=== PATIENT | female | born 1990 | race Hispanic/Latino ===

== ENCOUNTER 2017-06-04 22:31 | Emergency (ER) | payer OTHER ==
--- OUTSIDE RECORDS SUMMARY | 2017-06-04 22:33 | XMS REPORT ---
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 Problem Pain, unspecified R52 Active Problem Abnormal menses N92.6 Active Problem Allergic rhinitis J30.9 Active Problem Polycystic disease, ovaries E28.2 Active Problem BMI 45.0-49.9, adult Z68.42 Active Problem Fam hx-ischem heart disease Z82.49 Active Assessment Pain, unspecified R52 Active Assessment 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 Assessment Abnormal menses N92.6 Active Medications Medication Code Code Instructions Start End Status Dosage System Date Date Levothyroxine Sodium ND 71054969488 25 MCG Orally Active 1 tablet on Once a day an empty stomach in the morning Montelukast Sodium ND 58522596235 10 MG Orally Active 1 tablet in Once a day the evening Cromolyn Sodium [facility] 98408229992 4 % Active INSTILL 1 DROP IN THE AFFECTED EYE(S) 4 TIMES A DAY Paroxetine HCl ND 22337764334 40 MG Orally Active 1 tablet in Once a day the morning Nystatin-Triamcinolon ND 43863447325 428570-4.1 Active 1 e UNIT/GM application Externally to affected Twice a day area Lo Loestrin Fe ND 69162163486 1 MG-10 MCG / Active 1 tablet 10 MCG Orally Once a day Flonase ND 43760606867 50 MCG/ACT Active 2 spray in Nasally Once a each nostril day Singulair ND 14195306629 10 MG Orally Active 1 tablet in Once a day the evening Proventil HFA ND 82888353954 108 (90 Base) Active TAKE 2 PUFFS MCG/ACT BY MOUTH EVERY 4 TO 6 HOURS NEEDED FOR SHORTNESS OF BREATH/WHEEZ ING MedroxyPROGESTERone [facility] 66906434697 10 MG Orally May Active 1 tablet Acetate Once a day for , with food 10 days then 2017 2017 stop Qvar [facility] 59794550259 40 MCG/ACT Active 1 puff Inhalation Twice a day Spironolactone [facility] 05437647611 25 MG Orally Active 1 tablet Once a day with food Lisinopril [facility] 50152860598 40 MG Orally Active 1 tablet Once a day Results Name Result Date Reference Range Unit Abnormality Flag TEST URINE ----RESULTS neg [id number] URINALYSIS AUTO W/O SCOPE (23504) ----PROTEIN trace [id number] ----pH 5.5 [id number] ----NIT neg [id number] ----YENI neg [id number] ----URO 0.2 [id number] ----SPECIFIC GRAVITY 1.030 [id number] ----BLO neg [id number] ----BILIRUBIN neg [id number] ----KETONES neg [id number] ----GLUCOSE neg [id number] Summary Purpose eClinicalWorks Submission
[2017-06-04 23:11] LABS: Absolute Lymphocytes (CBC) 4.3 K/uL (0.7-4.9); Absolute Monocytes 0.8 K/uL (0.1-1.3); Absolute Neutrophil 8.5 K/uL (1.8-8.0); Eosinophils % 2.9 % (0-4.4); Hematocrit 43.3 % (36.0-45.0); Lymphocytes % 30.3 % (15.3-44.8); MCV 84.8 fL (80-100); MPV 8.7 fL (7.6-11.3); RBC Red Blood Cell Count 5.11 M/uL (3.86-4.86)
[2017-06-04 23:17] LABS: Protime INR 1.11
[2017-06-04 23:25] LABS: Potassium 3.4 mEq/L (3.6-5.0)
[2017-06-04] MEDS ORDERED: NA CHLORIDE 0.9% 1,000 ML ONE (23:28)
[2017-06-04] MEDS ORDERED: ASPIRIN 81 MG CHEWABLE TABLET ONE (23:28)
[2017-06-04] MEDS ORDERED: ENOXAPARIN 100 MG/ML SYR SQ ONE (23:28)
[2017-06-04] MEDS ORDERED: METOPROLOL TAR 50 MG TAB ONE (23:28)
[2017-06-04] MEDS ORDERED: FAMOTIDINE 20 MG/2 ML VIAL IV ONE (23:30)
[2017-06-04 23:33] LABS: Albumin 3.9 g/dL (3.2-5.5); Bilirubin Direct 0.1 mg/dL (0-0.2); Bilirubin Total 0.5 mg/dL (0.3-1.2); C-Reactive Protein 14.1 mg/L (<10.0); CKMB Creatine Kinase MB 1.1 ng/ml (0.3-4.0); Protein, Total 7.6 g/dL (6.0-8.3)
--- NOTE | 2017-06-05 00:35 | EDPHYS ---
Physician Documentation [facility] Name: Rubi Garrido Age: 26 yrs Sex: Female : 1990 Arrival Date: 06/04/2017 Time: 22:32 Bed 16 Private MD: ED Physician Flaco Klein HPI: 06/04 23:04 This 26 yrs old Female presents to ER via Ambulatory with complaints of Chest brigette Pain, RIGHT SIDE NUMBNESS. 23:04 The patient or guardian reports chest pain that is located primarily in the substernal brigette area. The pain does not radiate. Associated signs and symptoms: The patient has no apparent associated signs or symptoms. The chest pain is described as a heaviness. Duration: The patient or guardian reports a single episode, that is now resolved. Modifying factors: The symptoms are alleviated by nothing. the symptoms are aggravated by nothing. Severity of pain: At its worst the pain was mild moderate in the emergency department the pain is unchanged. The patient has experienced similar episodes in the past, a few times. FAMILY LIFE COUNSELOR: 22:45 LMP 03/2017 fc Historical: - Allergies: 23:03 Latex, Natural Rubber; fc 23:03 Phenergan; fc 23:03 Tramadol HCl; fc 23:03 Zofran; fc - Home Meds: 23:03 Singulair 10 mg Oral tab 1 tab as needed [Active]; spironolactone 25 mg Oral tab 1 tab fc 2 times per day [Active]; levothyroxine 175 mcg tab 1 tab once daily [Active]; Proventil Inhl as needed [Active]; ProAir HFA 90 mcg/actuation inhalation HFAA 1 puff as needed [Active]; - PMHx: 23:03 Asthma; PREECLAMPSIA; Hypothyroidism; Hypertension; CVA; fc - PSHx: 23:03 ; fc - Immunization history:: Last tetanus immunization: up to date. - Social history:: Smoking status: Patient/guardian denies using tobacco, Patient/guardian denies using alcohol, street drugs. - Family history:: not pertinent. ROS: 23:04 Constitutional: Negative for fever, chills, and weight loss, Eyes: Negative for injury, brigette pain, redness, and discharge, ENT: Negative for injury, pain, and discharge, Neck: Negative for injury, pain, and swelling, Respiratory: Negative for shortness of breath, cough, wheezing, and pleuritic chest pain, Abdomen/GI: Negative for abdominal pain, nausea, vomiting, diarrhea, and constipation, Back: Negative for injury and pain, : Negative for injury, bleeding, discharge, and swelling, MS/Extremity: Negative for injury and deformity, Skin: Negative for injury, rash, and discoloration, Neuro: Negative for headache, weakness, numbness, tingling, and seizure, Psych: Negative for depression, anxiety, suicide ideation, homicidal ideation, and hallucinations, Allergy/Immunology: Negative for hives, rash, and allergies, Endocrine: Negative for neck swelling, polydipsia, polyuria, polyphagia, and marked weight changes, Hematologic/Lymphatic: Negative for swollen nodes, abnormal bleeding, and unusual bruising. 23:04 Cardiovascular: Positive for chest pain, of the chest. Exam: 23:04 Constitutional: This is a well developed, well nourished patient who is awake, alert, brigette and in no acute distress. Head/Face: Normocephalic, atraumatic. Eyes: Pupils equal round and reactive to light, extra-ocular motions intact. Lids and lashes normal. Conjunctiva and sclera are non-icteric and not injected. Cornea within normal limits. Periorbital areas with no swelling, redness, or edema. ENT: Nares patent. No nasal discharge, no septal abnormalities noted. Tympanic membranes are normal and external auditory canals are clear. Oropharynx with no redness, swelling, or masses, exudates, or evidence of obstruction, uvula midline. Mucous membranes moist. Neck: Trachea midline, no thyromegaly or masses palpated, and no cervical lymphadenopathy. Supple, full range of motion without nuchal rigidity, or vertebral point tenderness. No Meningismus. Cardiovascular: Regular rate and rhythm with a normal S1 and S2. No gallops, murmurs, or rubs. Normal PMI, no JVD. No pulse deficits. Respiratory: Lungs have equal breath sounds bilaterally, clear to auscultation and percussion. No rales, rhonchi or wheezes noted. No increased work of breathing, no retractions or nasal flaring. Abdomen/GI: Soft, non-tender, with normal bowel sounds. No distension or tympany. No guarding or rebound. No evidence of tenderness throughout. Back: No spinal tenderness. No costovertebral tenderness. Full range of motion. Pelvic Exam: Normal external genitalia. Speculum exam with closed cervical os, no discharge or bleeding noted. Bimanual exam with normal adnexa, no adnexal or cervical motion tenderness. Normal uterus. Female : Normal external genitalia. Skin: Warm, dry with normal turgor. Normal color with no rashes, no lesions, and no evidence of cellulitis. MS/ Extremity: Pulses equal, no cyanosis. Neurovascular intact. Full, normal range of motion. Neuro: Awake and alert, GCS 15, oriented to person, place, time, and situation. Cranial nerves II-XII grossly intact. Motor strength 5/5 in all extremities. Sensory grossly intact. Cerebellar exam normal. Normal gait. Psych: Awake, alert, with orientation to person, place and time. Behavior, mood, and affect are within normal limits. 23:04 Chest/axilla: Inspection: normal, Palpation: tenderness, that is mild, of the anterior aspect of right upper chest, anterior aspect of left upper chest, xyphoid area, mid-sternal area, right breast and left breast. Vital Signs: 22:45 BP 138 / 97; Pulse 108; Resp 18; Temp 97.8(O); Pulse Ox 97% on R/A; Weight 99.79 kg fc (R); Height 4 ft. 11 in. (149.86 cm) (R); Pain 8/10; 23:55 BP 124 / 84; Pulse 83; Resp 18; Pulse Ox 97% on R/A; ao 06/05 00:55 BP 128 / 86; Pulse 82; Resp 16; Pulse Ox 97% on R/A; Pain 0/10; ao 06/04 22:45 Body Mass Index 44.43 (99.79 kg, 149.86 cm) NIH Stroke Scale Scores: 06/04 22:45 NIHSS Score: 1 23:06 NIHSS Score: 0 [facility] MDM: 22:47 Patient medically screened. [facility] 23:06 Data reviewed: vital signs, nurses notes, lab test result(s), EKG, radiologic studies, [facility] CT scan, plain films. 06/04 22:49 Order name: Basic Metabolic Panel; Complete Time: 00:31 [facility] 06/04 22:49 Order name: BNP; Complete Time: 00:31 [facility] 06/04 22:49 Order name: CBC with Diff; Complete Time: 00:31 06/04 22:49 Order name: Ckmb; Complete Time: 00:31 brigette 06/04 22:49 Order name: CPK; Complete Time: 00:31 06/04 22:49 Order name: LFT's; Complete Time: 00:31 06/04 22:49 Order name: Magnesium; Complete Time: 00:31 06/04 22:49 Order name: PT-INR; Complete Time: 00:06/04 22:49 Order name: Ptt, Activated; Complete Time: 00:31 06/04 22:49 Order name: Troponin (emerg Dept Use Only); Complete Time: 00: brigette 06/04 22:49 Order name: Lipase; Complete Time: 00: brigette 06/04 22:49 Order name: Sed Rate; Complete Time: 00:31 06/04 22:49 Order name: CRP; Complete Time: 00:31 brigette 06/04 22:51 Order name: Basic Metabolic Panel em06/04 22:49 Order name: EKG; Complete Time: 22:49 06/04 22:49 Order name: CT Stroke Brain w/o Contrast 06/04 22:51 Order name: CBC with Diff em06/04 22:51 Order name: Protime (+inr) em06/04 22:51 Order name: Ptt, Activated em06/04 22:51 Order name: Urine Microscopic Only 06/04 22:51 Order name: Stroke CXR 1 View 06/04 22:51 Order name: EKG; Complete Time: 22:52 06/04 22:49 Order name: Cardiac monitoring; Complete Time: 23:41 06/04 22:49 Order name: EKG - Nurse/Tech; Complete Time: 23:41 06/04 22:49 Order name: IV Saline Lock; Complete Time: 23:41 brigette 06/04 22:49 Order name: Labs collected and sent; Complete Time: 23:42 06/04 22:49 Order name: O2 Per Protocol; Complete Time: 23:42 06/04 22:49 Order name: O2 Sat Monitoring; Complete Time: 23:42 06/04 22:51 Order name: Accucheck; Complete Time: 23:43 em06/04 22:51 Order name: Cardiac monitoring; Complete Time: 23:38 em06/04 22:51 Order name: EKG - Nurse/Tech; Complete Time: 23:38 06/04 22:51 Order name: IV Saline Lock; Complete Time: 23:43 06/04 22:51 Order name: Labs collected and sent; Complete Time: 23:43 06/04 22:51 Order name: NPO; Complete Time: 23:43 em06/04 22:51 Order name: O2 Per Protocol; Complete Time: 23:43 06/04 22:51 Order name: O2 Sat Monitoring; Complete Time: 23:39 em06/04 22:51 Order name: Stroke Swallow Screen; Complete Time: 23:43 em06/05 00:40 Order name: CONS Physician Consult EDMS Administered Medications: 22:00 Drug: NS 0.9% 1000 ml Route: IV; Rate: 1 bolus; Site: left antecubital; ao 06/05 00:00 Follow up: IV Status: Completed infusion; IV Intake: 1000ml ao 06/04 23:20 Drug: Lopressor (metoprolol TARTRATE) 50 mg Route: PO; ao 06/05 00:51 Follow up: Response: No adverse reaction ao 06/04 23:25 Drug: Aspirin 162 mg Route: PO; ao 06/05 00:50 Follow up: Response: No adverse reaction ao 06/04 23:40 Drug: Pepcid 20 mg Route: IVP; Site: left antecubital; ao 06/05 00:51 Follow up: Response: No adverse reaction ao 06/04 23:54 Drug: Lovenox 1 mg/kg Route: Sub-Q; Site: abdomen; ao 06/05 00:50 Follow up: Response: No adverse reaction ao 01:02 Drug: Potassium Chloride 20 mEq Route: PO; ao 02:42 Follow up: Response: No adverse reaction ao Point of Care Testing: Blood Glucose: 06/04 22:46 Blood Glucose: 105 mg/dL; fc Ranges: Critical Glucose Levels:Adult <50 mg/dl or >400 mg/dl <40 mg/dl or >180 mg/dl Disposition: 06/05/17 01:10 Patient has left against medical advice. Impression: Other chest pain. - Patients states they are going to Home. - Condition is Stable. - Discharge Instructions: Nonspecific Chest Pain, Chest Wall Pain, Nonspecific Chest Pain, [id number], Aspirin and Your Heart. Follow up: Private Physician; When: Upon discharge from the Emergency Department; Reason: Recheck today's complaints, Re-evaluation by your physician. - Problem is new. - Symptoms have improved. NIH Stroke Scale - NIH Stroke Score Date: 06/04/2017 Time: 22:45 Total Score = 1 1a. Level of Consciousness (LOC) - 0(Alert) 1b. Level of Consciousness (LOC) (Year \T\ Age) - 0(Both) 1c. LOC Commands (Open \T\ Closes Eyes/Assistant Professor Of Criminal Justice) - 0(Both) 2. Best Gaze (Lateral Gaze Paresis) - 0(Normal) 3. Visual Field Loss - 0(No visual loss) 4. Facial Palsy - 0(Normal) 5a. Left Arm: Motor (10-second hold) - 0(No drift) 5b. Right Arm: Motor (10-second hold) - 0(No drift) 6a. Left Leg: Motor (5-second hold - always test supine) - 0(No drift) 6b. Right Leg: Motor (5-second hold - always test supine) - 0(No drift) 7. Limb Ataxia (finger/nose \T\ heel/jones - test with eyes open) - 0(Absent) 8. Sensory Loss (pinprick arms/legs/face) - 1(Mild to moderate loss) 9. Best Language: Aphasia (description/naming/reading) - 0(No aphasia) 10. Dysarthria (speech clarity - read or repeat words) - 0(Normal) 11. Extinction and Inattention (visual/tactile/auditory/spatial/personal) - 0(No abnormality) Initials: fc NIH Stroke Scale - NIH Stroke Score Date: 06/04/2017 Time: 23:06 Total Score = 0 1a. Level of Consciousness (LOC) - 0(Alert) 1b. Level of Consciousness (LOC) (Year \T\ Age) - 0(Both) 1c. LOC Commands (Open \T\ Closes Eyes/Assistant Professor Of Criminal Justice) - 0(Both) 2. Best Gaze (Lateral Gaze Paresis) - 0(Normal) 3. Visual Field Loss - 0(No visual loss) 4. Facial Palsy - 0(Normal) 5a. Left Arm: Motor (10-second hold) - 0(No drift) 5b. Right Arm: Motor (10-second hold) - 0(No drift) 6a. Left Leg: Motor (5-second hold - always test supine) - 0(No drift) 6b. Right Leg: Motor (5-second hold - always test supine) - 0(No drift) 7. Limb Ataxia (finger/nose \T\ heel/jones - test with eyes open) - 0(Absent) 8. Sensory Loss (pinprick arms/legs/face) - 0(Normal) 9. Best Language: Aphasia (description/naming/reading) - 0(No aphasia) 10. Dysarthria (speech clarity - read or repeat words) - 0(Normal) 11. Extinction and Inattention (visual/tactile/auditory/spatial/personal) - 0(No abnormality) Initials: brigette Signatures: Dispatcher [employer] EDMS Flaco Klein MD MD cha Chretien, Felicia, RN RN Luis Enrique Khan [facility] Sterling Arana RN RN ao Corrections: (The following items were deleted from the chart) 22:55 22:52 CT-STROKE BRAIN W/O CONTRAST+CT.RAD.BRZ ordered. EDMS EDMS 23:00 22:49 Chest Single View+RAD.RAD.BRZ ordered. EDMS EDMS
--- NOTE | 2017-06-05 00:35 | ER ---
Nurse's Notes [facility] Name: Rubi Garrido Age: 26 yrs Sex: Female : 1990 Arrival Date: 06/04/2017 Time: 22:32 Bed 16 Private MD: Diagnosis: Other chest pain Presentation: 06/04 22:45 Presenting complaint: Patient states: that at 2039 she started to have right arm fc numbness and chest pain that radiates to right arm and back. Denies any nausea or vomiting but is having some shortness of breath. Transition of care: patient was not received from another setting of care. Onset of symptoms was June 04, 2017 at 20:40. Initial Sepsis Screen: Does the patient meet any 2 criteria? HR > 90 bpm. Yes Does the patient have a suspected source of infection? No. Patient's initial sepsis screen is negative. Care prior to arrival: None. 22:45 Method Of Arrival: Ambulatory 22:45 Acuity: RACHEL 2 fc NIGHT CLUB MANAGER: 22:45 [facility] 03/2017 fc Historical: - Allergies: 23:03 Latex, Natural Rubber; fc 23:03 Phenergan; fc 23:03 Tramadol HCl; fc 23:03 Zofran; fc - Home Meds: 23:03 Singulair 10 mg Oral tab 1 tab as needed [Active]; spironolactone 25 mg Oral tab 1 tab fc 2 times per day [Active]; levothyroxine 175 mcg tab 1 tab once daily [Active]; Proventil Inhl as needed [Active]; ProAir HFA 90 mcg/actuation inhalation HFAA 1 puff as needed [Active]; - PMHx: 23:03 Asthma; PREECLAMPSIA; Hypothyroidism; Hypertension; CVA; fc - PSHx: 23:03 ; fc - Immunization history:: Last tetanus immunization: up to date. - Social history:: Smoking status: Patient/guardian denies using tobacco, Patient/guardian denies using alcohol, street drugs. - Family history:: not pertinent. Screenin:59 Abuse screen: Denies threats or abuse. Nutritional screening: No deficits noted. fc Tuberculosis screening: No symptoms or risk factors identified. Fall Risk None identified. Assessment: 22:45 Reassessment: NIH stroke scale done. ao 22:46 Reassessment: Code stroke called. Reassessment: Accu check done. ao 22:47 Reassessment: Pt taken to CT. ao 22:55 General: Appears in no apparent distress. uncomfortable, Behavior is calm, cooperative, ao appropriate for age, Reports numbness in the right side. Pain: Complains of pain in chest Pain does not radiate. Pain currently is 8 out of 10 on a pain scale. Pain began suddenly. Neuro: Level of Consciousness is awake, alert, obeys commands, Oriented to person, place, time, situation, Appropriate for age Weakness in right arm(s). Cardiovascular: Capillary refill < 3 seconds Patient's skin is warm and dry. Respiratory: Airway is patent Respiratory effort is even, unlabored, Respiratory pattern is regular, symmetrical, Breath sounds are clear bilaterally. GI: Abdomen is non-distended. : No signs and/or symptoms were reported regarding the genitourinary system. EENT: No signs and/or symptoms were reported regarding the EENT system. 22:55 Reassessment: Dr Klein at bedside. ao 23:00 Reassessment: 18 G at LAC IV done by Navin Arana RN. ao 23:05 Reassessment: Labs send. ao 23:06 Reassessment: CT results to DR Klein. ao 23:07 Reassessment: EKG Done. ao 23:13 Reassessment: Bedside swallow screen done. ao 23:55 Reassessment: Patient appears in no apparent distress at this time. Patient and/or ao family updated on plan of care and expected duration. Pain level reassessed. Patient is alert, oriented x 3, equal unlabored respirations, skin warm/dry/pink. 06/05 00:45 Reassessment: Patient appears in no apparent distress at this time. Patient and/or ao family updated on plan of care and expected duration. Pain level reassessed. Patient is alert, oriented x 3, equal unlabored respirations, skin warm/dry/pink. 01:00 Reassessment: Patient refused to stay in the hospital, Dr Klein was notified and ao stated if she want to leave she can sign AMA form. 01:21 Reassessment: Patient sing AMA form and was told to come back to the ED if any problems ao occur during the night. Vital Signs: 06/04 22:45 BP 138 / 97; Pulse 108; Resp 18; Temp 97.8(O); Pulse Ox 97% on R/A; Weight 99.79 kg fc (R); Height 4 ft. 11 in. (149.86 cm) (R); Pain 8/10; 23:55 BP 124 / 84; Pulse 83; Resp 18; Pulse Ox 97% on R/A; ao 06/05 00:55 BP 128 / 86; Pulse 82; Resp 16; Pulse Ox 97% on R/A; Pain 0/10; ao 06/04 22:45 Body Mass Index 44.43 (99.79 kg, 149.86 cm) fc NIH Stroke Scale Scores: 06/04 22:45 NIHSS Score: 1 fc 23:06 NIHSS Score: 0 brigette ED Course: 22:32 Patient arrived in ED. al2 22:44 Navin Arana, GRANT is Primary Nurse. ao 22:45 Arm band placed on Patient placed in an exam room, on a stretcher. fc 22:47 Flaco Klein MD is Attending Physician. brigette 22:53 CT Stroke Brain w/o Contrast In Process Unspecified. EDMS 22:54 Triage completed. fc 22:59 Patient has correct armband on for positive identification. Placed in gown. Bed in low fc position. Call light in reach. child monitor on. Pulse ox on. NIBP on. 22:59 No provider procedures requiring assistance completed. fc 23:00 Inserted saline lock: 18 gauge in left antecubital area, using aseptic technique. Blood ao collected. 23:01 X-ray completed. Portable x-ray completed in exam room. Patient tolerated procedure kw well. 23:02 Stroke CXR 1 View In Process Unspecified. EDMS 06/05 00:01 Patient maintains SpO2 saturation greater than 95% on room air. ao 00:34 Mari Vuong MD is Hospitalizing Provider. brigette 01:23 IV discontinued, intact, bleeding controlled, No redness/swelling at site. Pressure ao dressing applied. Administered Medications: 06/04 22:00 Drug: NS 0.9% 1000 ml Route: IV; Rate: 1 bolus; Site: left antecubital; ao 06/05 00:00 Follow up: IV Status: Completed infusion; IV Intake: 1000ml ao 06/04 23:20 Drug: Lopressor (metoprolol TARTRATE) 50 mg Route: PO; ao 06/05 00:51 Follow up: Response: No adverse reaction ao 06/04 23:25 Drug: Aspirin 162 mg Route: PO; ao 06/05 00:50 Follow up: Response: No adverse reaction ao 06/04 23:40 Drug: Pepcid 20 mg Route: IVP; Site: left antecubital; ao 06/05 00:51 Follow up: Response: No adverse reaction ao 06/04 23:54 Drug: Lovenox 1 mg/kg Route: Sub-Q; Site: abdomen; ao 06/05 00:50 Follow up: Response: No adverse reaction ao 01:02 Drug: Potassium Chloride 20 mEq Route: PO; ao 02:42 Follow up: Response: No adverse reaction ao Point of Care Testing: Blood Glucose: 06/04 22:46 Blood Glucose: 105 mg/dL; fc Ranges: Intake: 06/05 00:00 IV: 1000ml; Total: 1000ml. ao Outcome: 00:35 Decision to Hospitalize by Provider. brigette 01:22 AMA AMA form signed ao 01:22 Condition: stable 01:22 Instructed on Come back to the ED if any problem occur and to follow up with DR Davila 01:23 Patient left the ED. ao NIH Stroke Scale - NIH Stroke Score Date: 06/04/2017 Time: 22:45 Total Score = 1 1a. Level of Consciousness (LOC) - 0(Alert) 1b. Level of Consciousness (LOC) (Year \T\ Age) - 0(Both) 1c. LOC Commands (Open \T\ Closes Eyes/Organizational Effectiveness Director) - 0(Both) 2. Best Gaze (Lateral Gaze Paresis) - 0(Normal) 3. Visual Field Loss - 0(No visual loss) 4. Facial Palsy - 0(Normal) 5a. Left Arm: Motor (10-second hold) - 0(No drift) 5b. Right Arm: Motor (10-second hold) - 0(No drift) 6a. Left Leg: Motor (5-second hold - always test supine) - 0(No drift) 6b. Right Leg: Motor (5-second hold - always test supine) - 0(No drift) 7. Limb Ataxia (finger/nose \T\ heel/jones - test with eyes open) - 0(Absent) 8. Sensory Loss (pinprick arms/legs/face) - 1(Mild to moderate loss) 9. Best Language: Aphasia (description/naming/reading) - 0(No aphasia) 10. Dysarthria (speech clarity - read or repeat words) - 0(Normal) 11. Extinction and Inattention (visual/tactile/auditory/spatial/personal) - 0(No abnormality) Initials: maicol NIH Stroke Scale - NIH Stroke Score Date: 06/04/2017 Time: 23:06 Total Score = 0 1a. Level of Consciousness (LOC) - 0(Alert) 1b. Level of Consciousness (LOC) (Year \T\ Age) - 0(Both) 1c. LOC Commands (Open \T\ Closes Eyes/Organizational Effectiveness Director) - 0(Both) 2. Best Gaze (Lateral Gaze Paresis) - 0(Normal) 3. Visual Field Loss - 0(No visual loss) 4. Facial Palsy - 0(Normal) 5a. Left Arm: Motor (10-second hold) - 0(No drift) 5b. Right Arm: Motor (10-second hold) - 0(No drift) 6a. Left Leg: Motor (5-second hold - always test supine) - 0(No drift) 6b. Right Leg: Motor (5-second hold - always test supine) - 0(No drift) 7. Limb Ataxia (finger/nose \T\ heel/jones - test with eyes open) - 0(Absent) 8. Sensory Loss (pinprick arms/legs/face) - 0(Normal) 9. Best Language: Aphasia (description/naming/reading) - 0(No aphasia) 10. Dysarthria (speech clarity - read or repeat words) - 0(Normal) 11. Extinction and Inattention (visual/tactile/auditory/spatial/personal) - 0(No abnormality) Initials: brigette Signatures: Dispatcher [employer] Flcao De La Paz MD MD cha Chretien, Felicia, RN RN Sherry Greer Alex, RN Lucille Bush
[2017-06-05] MEDS ORDERED: POTASSIUM CL SA 10 MEQ TAB PO ONE (00:53)
[2017-06-05 01:54] VITALS: TEMP 97.8; O2SAT 97
[2017-06-05 01:56] VITALS: BP 128/86
--- NOTE | 2017-06-05 08:59 | RAD REPORT ---
EXAM DESCRIPTION: CT - Ct Stroke Brain Wo Cont - 06/05/2017 6:42 am CLINICAL HISTORY: Right arm numbness and blurred vision COMPARISON: 2013 TECHNIQUE: Computed axial tomography of the head was obtained. IV contrast was not requested. A prel iminary report was generated by [facility] and review prior to dictation. All CT scans are performed using dose optimization technique as appropriate and may include automated exposure control or mA/KV adjustment according to patient size. FINDINGS: An intracranial bleed is not seen . The ventricles are normal in caliber. No extra-axial fluid collection is noted. Fluid within the sinuses/ mastoids is not seen. IMPRESSION: No acute intracranial abnormality is seen. If patient's symptoms persist MRI of the bra in would be recommended. A preliminary report was given by [facility] 10:59 p.m. June 04, 2017
--- NOTE | 2017-06-05 09:00 | RAD REPORT ---
EXAM DESCRIPTION: Bob Single View06/04/2017 11:03 pm CLINICAL HISTORY: Chest pain COMPARISON: 2012 FINDINGS: The lungs appear clear of acute infiltrate. The heart is normal size IMPRESSION: No acute abnormalities displayed
--- NOTE | 2017-06-05 16:28 | EKG ---
Test Date: 2017-06-04 Test Time: 23:03:11 Ethanol Operations Manager: ARLETTE MEASUREMENT RESULTS: Intervals: Rate: 87 GA: 150 QRSD: 88 QT: 346 QTc: 416 [place]: P: 38 GA: 150 QRS: 11 T: 21 INTERPRETIVE STATEMENTS: Normal sinus rhythm Normal ECG Compared to ECG 11/14/2013 09:33:32 No significant changes Electronically Signed On 06-05-17 16:23:52 CDT by Emiliano Gonzalez
== END 2017-06-05 01:23 | disposition left against medical advice (07) ==
LOC: ER 22:31 → UNDOADMOB 06-05 00:36 → ERHOLD 06-05 00:36 → UNDODISOB 06-05 01:26
DX: R07.89 Other chest pain (principal); I10 Essential (primary) hypertension; E03.9 Hypothyroidism, unspecified; J45.909 Unspecified asthma, uncomplicated; Z86.73 Personal history of transient ischemic attack (TIA), and cerebral infarction without residual deficits; Z88.5 Allergy status to narcotic agent; Z88.8 Allergy status to other drugs, medicaments and biological substances; Z91.040 Latex allergy status; Z91.048 Other nonmedicinal substance allergy status
CPT/HCPCS: 36415; 70450; 71045; 80048; 80076; 82550; 82553; 82962; 83690; 83735; 83880; 84484; 85025; 85610; 85652; 85730; 86140; 93005; 96361; 96372; 96374; 99285; J1650; J7030

== ENCOUNTER 2017-06-07 16:59 | Emergency (ER) | payer OTHER ==
--- OUTSIDE RECORDS SUMMARY | 2017-06-07 17:01 | XMS REPORT ---
[...] Dosage System Date Date Levothyroxine Sodium ND 95677549505 25 MCG Orally Active 1 tablet on Once a day an empty stomach in the morning Montelukast Sodium ND 53304591452 10 MG Orally Active 1 tablet in Once a day the evening Cromolyn Sodium [facility] 25352095006 4 % Active INSTILL 1 DROP IN THE AFFECTED EYE(S) 4 TIMES A DAY Paroxetine HCl ND 91994779108 40 MG Orally Active 1 tablet in Once a day the morning Nystatin-Triamcinolon ND 50072450728 828559-5.1 Active 1 e UNIT/GM application Externally to affected Twice a day area Lo Loestrin Fe ND 80690393728 1 MG-10 MCG / Active 1 tablet 10 MCG Orally Once a day Flonase ND 04092042325 50 MCG/ACT Active 2 spray in Nasally Once a each nostril day Singulair ND 83558413996 10 MG Orally Active 1 tablet in Once a day the evening Proventil HFA ND 89241408374 108 (90 Base) Active TAKE 2 PUFFS MCG/ACT BY MOUTH EVERY 4 TO 6 HOURS NEEDED FOR SHORTNESS OF BREATH/WHEEZ ING MedroxyPROGESTERone [facility] 98792510729 10 MG Orally May Active 1 tablet Acetate Once a day for , with food 10 days then 2017 2017 stop Qvar [facility] 87025923010 40 MCG/ACT Active 1 puff Inhalation Twice a day Spironolactone [facility] 14300122638 25 MG Orally Active 1 tablet Once a day with food Lisinopril [facility] 94600735424 40 MG Orally Active 1 tablet Once a day Results Name Result Date Reference Range Unit Abnormality Flag TEST URINE ----RESULTS neg [id number] URINALYSIS AUTO W/O SCOPE (96858) ----PROTEIN trace [id number] ----pH 5.5 20170603 ----NIT neg [id number] ----YENI neg [id number] ----URO 0.2 [id number] ----SPECIFIC GRAVITY 1.030 [id number] ----BLO neg [id number] ----BILIRUBIN neg [id number] ----KETONES neg [id number] ----GLUCOSE neg [id number] Summary Purpose eClinicalWorks Submission
[2017-06-07 18:39] LABS: Absolute Lymphocytes (CBC) 3.6 K/uL (0.7-4.9); Absolute Monocytes 0.8 K/uL (0.1-1.3); Absolute Neutrophil 7.9 K/uL (1.8-8.0); Basophils % 0.9 % (0-1.3); Eosinophils % 5.1 % (0-4.4); Lymphocytes % 27.7 % (15.3-44.8); MCH 27.9 pg (27.0-35.0); MCV 83.9 fL (80-100); MPV 8.8 fL (7.6-11.3); Monocytes % 6.2 % (3.3-12.3); RBC Red Blood Cell Count 5.24 M/uL (3.86-4.86)
[2017-06-07 18:44] LABS: Bicarbonate 27 mEq/L (21-31); Glucose Level 94 mg/dL (65-120); Potassium 3.7 mEq/L (3.6-5.0); Sodium Level 139 mEq/L (135-145)
[2017-06-07 18:50] LABS: ALT/SGPT 28 IU/L (10-60); AST/SGOT 23 IU/L (10-42); Albumin 4.1 g/dL (3.2-5.5); Alkaline Phosphatase 61 IU/L (42-121); BUN Blood Urea Nitrogen 12 mg/dL (6-20); Bilirubin Direct < 0.1 mg/dL (0-0.2); Bilirubin Total 0.3 mg/dL (0.3-1.2); Creatine Phosphokinase 122 IU/L (22-269); Protein, Total 7.9 g/dL (6.0-8.3)
[2017-06-07 18:54] LABS: Urine Blood NEGATIVE (NEG); Urine Glucose NEGATIVE (NEG); Urine Protein NEGATIVE (NEG); Urine pH 6.5 (5.0-7.0)
[2017-06-07 18:54] LABS: CKMB Creatine Kinase MB 1.6 ng/ml (0.3-4.0)
--- NOTE | 2017-06-07 20:08 | RAD REPORT ---
EXAM DESCRIPTION: RAD - Chest Single View - 06/07/2017 6:38 pm CLINICAL HISTORY: Chest pain COMPARISON: June 04 TECHNIQUE: AP portable chest image was obtained 1834 hours . FINDINGS: Lungs are clear. Heart and vasculature are normal. No measurable pleural effusion and no p neumothorax. No gross bony abnormality seen. No acute aortic findings suspected. IMPRESSION: No acute cardiopulmonary process. No significant interval change.
[2017-06-07] MEDS ORDERED: CYCLOBENZAPRINE 10 MG TAB ONE (20:53)
[2017-06-07] MEDS ORDERED: KETOROLAC 30 MG/ML INJ ONE (20:53)
--- NOTE | 2017-06-07 21:00 | ER ---
Nurse's Notes [facility] Name: Rubi Garrido Age: 26 yrs Sex: Female : 1990 Arrival Date: 06/07/2017 Time: 17:25 Bed 28 Private MD: Diagnosis: Chest pain, unspecified Presentation: 06/07 17:26 Presenting complaint: Patient states: Sharp substernal chest pain 8/10 that radiates to hb mid back that started approx 1 hr SHERIFF. Also c/o SOB, nausea, and sleepiness. Transition of care: patient was not received from another setting of care. Onset of symptoms was June 07, 2017 at 14:30. Initial Sepsis Screen: Does the patient meet any 2 criteria? No. Patient's initial sepsis screen is negative. Does the patient have a suspected source of infection? No. Patient's initial sepsis screen is negative. Care prior to arrival: None. 17:26 Method Of Arrival: Ambulatory hb 17:26 Acuity: RACHEL 3 hb Triage Assessment: 17:50 General: Appears in no apparent distress. well groomed, well developed, well nourished, rk2 Behavior is calm, cooperative. Pain: Complains of pain in chest. Neuro: Level of Consciousness is alert, obeys commands, Oriented to person, place. Cardiovascular: Rhythm is sinus rhythm. Respiratory: No deficits noted. Airway is patent Respiratory effort is even, unlabored, Respiratory pattern is regular, symmetrical. Derm: Skin is pink, warm \T\ dry. 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 - Social history:: Smoking status: Patient/guardian denies using tobacco. Screenin:50 Abuse screen: Denies threats or abuse. rk2 17:50 Nutritional screening: No deficits noted. Tuberculosis screening: No symptoms or risk rk2 factors identified. Fall Risk None identified. Assessment: 17:50 Pain: Pain began 1 hour ago. rk2 18:30 Reassessment: Pt. resting in room \T\ this time, family \T\ bedside. Pt. appears to be in rk 2 no obvious distress. No needs voiced \T\ this time. 19:29 Reassessment: Pt. resting in room \T\ this time with family \T\ bedside... pt. still c/o of rk 2 same cp that she was having upon arrival. Pt. appears to be in no obvious distress... no voiced any needs \T\ this time. 20:30 Reassessment: Pt. resting in room \T\ this time, \T\ bedside... pt. appears to be rk 2 in no obvious distress \T\ this time and voiced no needs. Vital Signs: 17:27 BP 165 / 100; Pulse 97; Resp 16; Temp 98.4; Pulse Ox 97% on R/A; Weight 99.34 kg; hb Height 4 ft. 11 in. (149.86 cm); Pain 8/10; 19:22 BP 126 / 92; Pulse 89; Resp 17; Pulse Ox 100% on R/A; rk2 20:30 BP 136 / 90; Pulse 91; Resp 16; Pulse Ox 100% on R/A; rk2 21:00 BP 136 / 95; Pulse 90; Resp 16; Pulse Ox 100% on R/A; rk2 17:27 Body Mass Index 44.23 (99.34 kg, 149.86 cm) hb ED Course: 17:25 Patient arrived in ED. hb 17:27 Triage completed. hb 17:27 Arm band placed on right wrist. hb 17:31 Angi Mena RN is Primary Nurse. rk2 17:49 Jerardo Menon NP is PHCP. pm1 17:49 Nasir Abarca MD is Attending Physician. pm1 17:50 Patient has correct armband on for positive identification. Bed in low position. Call rk2 light in reach. clinical research monitor on. Pulse ox on. 17:50 Patient maintains SpO2 saturation greater than 95% on room air. rk2 17:[address] via wheelchair. cw1 18:36 X-ray completed. Portable x-ray completed in exam room. Patient tolerated procedure kp1 well. 18:37 XRAY Chest (1 view) In Process Unspecified. EDMS 21:20 No provider procedures requiring assistance completed. IV discontinued. rk2 Administered Medications: 20:57 Drug: TORadol 30 mg Route: IVP; Site: left antecubital; rk2 21:20 Follow up: Response: No adverse reaction rk2 20:57 Drug: Flexeril 10 mg Route: PO; rk2 21:20 Follow up: Response: No adverse reaction rk2 Outcome: 21:00 Discharge ordered by MD. pm1 21:20 Discharged to home ambulatory. rk2 21:20 Condition: good 21:20 Discharge instructions given to patient, Prescriptions given X 1. 21:21 Patient left the ED. rk2 Signatures: Dispatcher [employer] EDRI Letitia Carey cw1 Jerardo Menon, HILDA BOAT DOCK OPERATOR pm1 Lindsay Wren, RN RN Chioma Graf kp1 Angi Mena, GRANT RN rk2 Corrections: (The following items were deleted from the chart) 18:14 17:26 Presenting complaint: Patient states: Sharp anterior chest pain 8/10 that hb radiates to mid back that started approx 1 hr SHERIFF. Also c/o SOB, nausea, and sleepiness. hb 19:16 19:14 General: Appears in no apparent distress. well groomed, well developed, well rk2 nourished, Behavior is calm, cooperative, rk2 19:16 19:14 Pain: Complains of pain in chest rk2 rk 19:16 19:14 Neuro: Level of Consciousness is alert, obeys commands, Oriented to person, rk2 place, rk2 19:16 19:14 Cardiovascular: Rhythm is sinus rhythm rk2 rk 19:16 19:14 Respiratory: No deficits noted. Airway is patent Respiratory effort is even, rk2 unlabored, Respiratory pattern is regular, symmetrical, rk2 19:16 19:14 Derm: Skin is pink, warm \T\ dry. rk2 rk2
--- NOTE | 2017-06-07 21:00 | EDPHYS ---
Physician Documentation [facility] Name: Rubi Garrido Age: 26 yrs Sex: Female : 1990 Arrival Date: 06/07/2017 Time: 17:25 Bed 28 Private MD: ED Physician Nasir Abarca HPI: 06/07 18:00 This 26 yrs old Female presents to ER via Ambulatory with complaints of Chest pm1 Pain. 18:00 The patient or guardian reports chest pain that is located primarily in the anterior pm1 chest wall, right. The pain radiates to the right arm. Associated signs and symptoms: Pertinent negatives: abdominal pain, diaphoresis, dizziness, nausea, palpitations, shortness of breath, vomiting. The chest pain is described as sharp. Duration: The patient or guardian reports a single episode, that is still ongoing, and unchanged. Modifying factors: The symptoms are alleviated by nothing. the symptoms are aggravated by deep breath, palpation of area, moving right arm. Severity of pain: in the emergency department the pain is unchanged. The patient has experienced similar episodes in the past, a few times. The patient has been recently seen at the [facility] Emergency Department, last week, Patient came to the ER on 06/04 with the same presentation of right sided chest pain. Patient refused admission at that time. Chest pain started on 06/04. Patient's pain has not changed since 06/04. . 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 - Social history:: Smoking status: Patient/guardian denies using tobacco. ROS: 18:00 Constitutional: Negative for fever, chills, and weight loss, Eyes: Negative for injury, pm1 pain, redness, and discharge, ENT: Negative for injury, pain, and discharge, Neck: Negative for injury, pain, and swelling. 18:00 Respiratory: Negative for shortness of breath, cough, wheezing, and pleuritic chest pain, Abdomen/GI: Negative for abdominal pain, nausea, vomiting, diarrhea, and constipation, Back: Negative for injury and pain, : Negative for injury, bleeding, discharge, and swelling, MS/Extremity: Negative for injury and deformity, Skin: Negative for injury, rash, and discoloration, Neuro: Negative for headache, weakness, numbness, tingling, and seizure. 18:00 Cardiovascular: Positive for chest pain, Negative for edema, orthopnea, palpitations. Exam: 18:00 Constitutional: This is a well developed, well nourished patient who is awake, alert, pm1 and in no acute distress. Head/Face: Normocephalic, atraumatic. Eyes: Pupils equal round and reactive to light, extra-ocular motions intact. Lids and lashes normal. Conjunctiva and sclera are non-icteric and not injected. Cornea within normal limits. Periorbital areas with no swelling, redness, or edema. ENT: Nares patent. No nasal discharge, no septal abnormalities noted. Tympanic membranes are normal and external auditory canals are clear. Oropharynx with no redness, swelling, or masses, exudates, or evidence of obstruction, uvula midline. Mucous membranes moist. Neck: Trachea midline, no thyromegaly or masses palpated, and no cervical lymphadenopathy. Supple, full range of motion without nuchal rigidity, or vertebral point tenderness. No Meningismus. 18:00 Cardiovascular: Regular rate and rhythm with a normal S1 and S2. No gallops, murmurs, or rubs. Normal PMI, no JVD. No pulse deficits. Respiratory: Lungs have equal breath sounds bilaterally, clear to auscultation and percussion. No rales, rhonchi or wheezes noted. No increased work of breathing, no retractions or nasal flaring. 18:00 Abdomen/GI: Soft, non-tender, with normal bowel sounds. No distension or tympany. No guarding or rebound. No evidence of tenderness throughout. Back: No spinal tenderness. No costovertebral tenderness. Full range of motion. Skin: Warm, dry with normal turgor. Normal color with no rashes, no lesions, and no evidence of cellulitis. MS/ Extremity: Pulses equal, no cyanosis. Neurovascular intact. Full, normal range of motion. 18:00 Chest/axilla: Inspection: normal, Palpation: tenderness, that is mild, of the anterior aspect of right upper chest, that totally reproduces the patient's complaints, Pain reproduced with palpation, movement of right arm above her head and rotation of shoulder and with deep breathing. 18:00 ECG was reviewed by the Attending Physician. No change from ECG on 06/04 18:00 Neuro: Orientation: is normal, appropriate for stated age, Mentation: is normal, Motor: is normal, moves all fours, Sensation: is normal, no obvious gross deficits, Gait: is steady. Vital Signs: 17:27 BP 165 / 100; Pulse 97; Resp 16; Temp 98.4; Pulse Ox 97% on R/A; Weight 99.34 kg; hb Height 4 ft. 11 in. (149.86 cm); Pain 8/10; 19:22 BP 126 / 92; Pulse 89; Resp 17; Pulse Ox 100% on R/A; rk2 20:30 BP 136 / 90; Pulse 91; Resp 16; Pulse Ox 100% on R/A; rk2 21:00 BP 136 / 95; Pulse 90; Resp 16; Pulse Ox 100% on R/A; rk2 17:27 Body Mass Index 44.23 (99.34 kg, 149.86 cm) hb MDM: 17:55 Patient medically screened. pm1 20:39 Data reviewed: vital signs. Data interpreted: Pulse oximetry: on room air is 100 %. pm1 Interpretation: normal. 20:59 Counseling: I had a detailed discussion with the patient and/or guardian regarding: the pm1 historical points, exam findings, and any diagnostic results supporting the discharge/admit diagnosis, lab results, radiology results, the need for outpatient follow up, to return to the emergency department if symptoms worsen or persist or if there are any questions or concerns that arise at home. 06/07 17:55 Order name: Basic Metabolic Panel; Complete Time: 20:01 pm1 06/07 17:55 Order name: BNP; Complete Time: 19:02 pm06/07 17:55 Order name: CBC with Diff; Complete Time: 19:02 pm06/07 17:55 Order name: Ckmb; Complete Time: 20:01 pm06/07 17:55 Order name: CPK; Complete Time: 20:01 pm06/07 17:55 Order name: LFT's; Complete Time: 20:01 pm06/07 17:55 Order name: Magnesium; Complete Time: 20:01 pm06/07 17:55 Order name: PT-INR; Complete Time: 19:02 pm06/07 17:55 Order name: Ptt, Activated; Complete Time: 19:02 pm06/07 17:55 Order name: Troponin (emerg Dept Use Only); Complete Time: 19:02 pm06/07 17:55 Order name: XRAY Chest (1 view); Complete Time: 20:39 pm06/07 18:53 Order name: Urine Dipstick--Ancillary (enter results); Complete Time: 19:02 bd 06/07 18:53 Order name: Urine --Ancillary (enter results); Complete Time: 19:02 bd 06/07 17:55 Order name: EKG; Complete Time: 17:56 pm06/07 17:55 Order name: Cardiac monitoring; Complete Time: 18:06 pm06/07 17:55 Order name: EKG - Nurse/Tech; Complete Time: 18:06 pm06/07 17:55 Order name: IV Saline Lock; Complete Time: 18:27 pm06/07 17:55 Order name: Labs collected and sent; Complete Time: 18:27 pm06/07 17:55 Order name: O2 Per Protocol; Complete Time: 18:06 pm06/07 17:55 Order name: O2 Sat Monitoring; Complete Time: 18:06 pm06/07 17:55 Order name: Urine Dipstick-Ancillary (obtain specimen); Complete Time: 19:12 pm06/07 18:37 Order name: Urine Test (obtain specimen); Complete Time: 19:12 rk2 Administered Medications: 20:57 Drug: TORadol 30 mg Route: IVP; Site: left antecubital; rk2 21:20 Follow up: Response: No adverse reaction rk2 20:57 Drug: Flexeril 10 mg Route: PO; rk2 21:20 Follow up: Response: No adverse reaction rk2 Disposition: 06/08 12:45 Co-signature as Attending Physician, Nasir Abarca MD. Disposition: 06/07/17 21:00 Discharged to Home. Impression: Chest pain, unspecified. - Condition is Stable. - Discharge Instructions: Nonspecific Chest Pain. - Prescriptions for Cyclobenzaprine 10 mg Oral Tablet - take 1 tablet by ORAL route every 8 hours As needed; 30 tablet. - Medication Reconciliation Form, Thank You Letter form. - Follow up: Emergency Department; When: As needed; Reason: Worsening of condition. Follow up: Private Physician; When: 2 - 3 days; Reason: Recheck today's complaints, Continuance of care, Re-evaluation by your physician. - Problem is new. - Symptoms have improved. Signatures: Dispatcher [employer] EDMS Jerardo Menon NP DIRECTOR OF GLOBAL TALENT pm1 Lindsay Wren RN RN Nasir Abarca MD MD Angi Mena RN RN rk2 Corrections: (The following items were deleted from the chart) 06/07 18:36 17:55 Urine Test ordered. pm1 rk2
[2017-06-07 21:26] VITALS: TEMP 98.4
[2017-06-07 21:27] VITALS: O2SAT 100
[2017-06-07 21:29] VITALS: BP 136/95
--- NOTE | 2017-06-08 07:16 | EKG ---
Test Date: 2017-06-07 Test Time: 17:44:59 Credit Collections Manager: TT MEASUREMENT RESULTS: Intervals: Rate: 73 CA: 146 QRSD: 86 QT: 356 QTc: 392 [place]: P: 43 CA: 146 QRS: 27 T: 25 INTERPRETIVE STATEMENTS: Normal sinus rhythm with sinus arrhythmia Normal ECG Compared to ECG 06/04/2017 23:03:11 No significant changes Electronically Signed On 06-08-17 07:15:29 CDT by Rodney Rooney
== END 2017-06-07 21:21 | disposition home or self-care (01) ==
LOC: ER 16:59
DX: R07.9 Chest pain, unspecified (principal); I10 Essential (primary) hypertension; E03.9 Hypothyroidism, unspecified; J45.909 Unspecified asthma, uncomplicated; Z86.73 Personal history of transient ischemic attack (TIA), and cerebral infarction without residual deficits; Z88.6 Allergy status to analgesic agent; Z88.8 Allergy status to other drugs, medicaments and biological substances; Z91.040 Latex allergy status
CPT/HCPCS: 36415; 71045; 80048; 80076; 81003; 81025; 82550; 82553; 83735; 83880; 84484; 85025; 85610; 85730; 93005; 96374; 99285

== ENCOUNTER 2017-12-16 07:48 | Emergency (ER) | payer OTHER ==
--- OUTSIDE RECORDS SUMMARY | 2017-12-16 07:51 | XMS REPORT ---
[...] Dosage System Date Date Levothyroxine Sodium ND 07690826479 25 MCG Orally Active 1 tablet on Once a day an empty stomach in the morning Montelukast Sodium ND 04324289504 10 MG Orally Active 1 tablet in Once a day the evening Cromolyn Sodium [facility] 87624088875 4 % Active INSTILL 1 DROP IN THE AFFECTED EYE(S) 4 TIMES A DAY Paroxetine HCl ND 85527494470 40 MG Orally Active 1 tablet in Once a day the morning Nystatin-Triamcinolon ND 01387216347 580891-9.1 Active 1 e UNIT/GM application Externally to affected Twice a day area Lo Loestrin Fe ND 87862226500 1 MG-10 MCG / Active 1 tablet 10 MCG Orally Once a day Flonase ND 04124878271 50 MCG/ACT Active 2 spray in Nasally Once a each nostril day Singulair ND 90426049168 10 MG Orally Active 1 tablet in Once a day the evening Proventil HFA ND 64600296960 108 (90 Base) Active TAKE 2 PUFFS MCG/ACT BY MOUTH EVERY 4 TO 6 HOURS NEEDED FOR SHORTNESS OF BREATH/WHEEZ ING MedroxyPROGESTERone [facility] 42333493025 10 MG Orally May Active 1 tablet Acetate Once a day for , with food 10 days then 2017 2017 stop Qvar [facility] 51532154824 40 MCG/ACT Active 1 puff Inhalation Twice a day Spironolactone [facility] 50900386674 25 MG Orally Active 1 tablet Once a day with food Lisinopril [facility] 41564427864 40 MG Orally Active 1 tablet Once a day Results Name Result Date Reference Range Unit Abnormality Flag TEST URINE ----RESULTS neg [id number] URINALYSIS AUTO W/O SCOPE (98409) ----PROTEIN trace 20170603 ----pH 5.5 20170603 ----NIT neg [id number] ----YENI neg [id number] ----URO 0.2 20170603 ----SPECIFIC GRAVITY 1.030 20170603 ----BLO neg [id number] ----BILIRUBIN neg [id number] ----KETONES neg [id number] ----GLUCOSE neg [id number] Summary Purpose eClinicalWorks Submission
--- OUTSIDE RECORDS SUMMARY | 2017-12-16 07:51 | XMS REPORT ---
:1990 Author Organization eClinicalWorks Care Team Providers Name Role Phone Terra Carrasquillo Provider Role Unavailable Allergies No Known Allergies Problems Problem Type Condition Code Onset Dates [...] Problem Fam hx-ischem heart disease Z82.49 Active Medications Medication Code System Code Instructions Start Date End Date Status Dosage Flagyl [facility] 73783490113 500 MG Orally June 10, June 17, Active 1 tablet Twice daily 2017 2017 Results No Known Results Summary Purpose eClinicalWorks Submission
--- OUTSIDE RECORDS SUMMARY | 2017-12-16 07:51 | XMS REPORT ---
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 Problem Essential hypertension I10 Active Problem Fam hx-ischem heart disease Z82.49 Active Problem Allergic rhinitis J30.9 Active Problem Pain, unspecified R52 Active Problem BMI 45.0-49.9, adult Z68.42 Active Assessment Essential hypertension I10 Active Assessment Viral upper respiratory tract J06.9 Active infection Problem Hyperthyroidism E05.90 Active Medications Medication Code Code Instructions Start End Status Dosage System Date Date Proventil HFA [facility] 61075110089 108 (90 Base) Active TAKE 2 MCG/ACT PUFFS BY MOUTH EVERY 4 TO 6 HOURS NEEDED FOR SHORTNESS OF BREATH/WHEE ZING Spironolactone [facility] 80302438285 25 MG Active TAKE 1 TABLET BY MOUTH EVERY DAY. DO NOT START UNTIL IS RULED OUT Qvar [facility] 84608921101 40 MCG/ACT Active 1 puff Inhalation Twice a day Montelukast ND 58804827996 10 MG Orally Active 1 tablet in Sodium Once a day the evening Lo Loestrin Fe ND 55815800381 1 MG-10 MCG / Active 1 tablet 10 MCG Orally Once a day Singulair ND 79811541284 10 MG Active TAKE 1 TABLET BY MOUTH EVERY DAY GNP Loratadine-D [facility] 16000010876 5-120 MG Orally Oct 27, Oct Active 1 tablet as 12HR every 12 hrs 2018 03, needed 2018 Fluticasone ND 41567893992 50 MCG/ACT Oct 27, Active 1 spray in Propionate Nasally Once a 2018 each day nostril Levothyroxine ND 78418826395 25 MCG Orally Active 1 tablet on Sodium Once a day an empty stomach in the morning Paroxetine HCl [facility] 62071833081 30 MG Active TAKE 1 TABLET BY MOUTH EVERY DAY Lisinopril [facility] 30013513293 40 MG Active TAKE 1 TABLET BY MOUTH EVERY DAY Results No Known Results Summary Purpose eClinicalWorks Submission
--- OUTSIDE RECORDS SUMMARY | 2017-12-16 07:51 | XMS REPORT ---
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 Problem Pain, unspecified R52 Active Problem Abnormal menses N92.6 Active Problem Allergic rhinitis J30.9 Active Problem Polycystic disease, ovaries E28.2 Active Problem BMI 45.0-49.9, adult Z68.42 Active Problem Fam hx-ischem heart disease Z82.49 Active Medications Medication Code Code Instructions Start End Status Dosage System Date Date Lo Loestrin Fe [facility] 59695152485 1 MG-10 MCG / Active 1 tablet 10 MCG Orally Once a day Flonase ND 36055377124 50 MCG/ACT Active 2 spray in Nasally Once a each nostril day Nystatin-Triamcin [facility] 42286639457 049588-5.1 Active 1 application olone UNIT/GM to affected Externally area Twice a day Montelukast ND 65622284704 10 MG Orally Active 1 tablet in Sodium Once a day the evening Qvar [facility] 84316496346 40 MCG/ACT Active 1 puff Inhalation Twice a day Cromolyn Sodium [facility] 80639289284 4 % Active INSTILL 1 DROP IN THE AFFECTED EYE(S) 4 TIMES A DAY Lisinopril ND 03516653304 40 MG Orally Active 1 tablet Once a day Ciprofloxacin HCl ND 43368826325 500 MG Orally August Active 1 tablet every 12 hrs 2017 Levothyroxine ND 03318030141 25 MCG Orally Active 1 tablet on Sodium Once a day an empty stomach in the morning Singulair [facility] 97829737081 10 MG Orally Active 1 tablet in Once a day the evening Paroxetine HCl [facility] 83606774706 40 MG Orally Active 1 tablet in Once a day the morning Paroxetine HCl [facility] 16570373403 30 MG Active TAKE 1 TABLET BY MOUTH EVERY DAY Proventil HFA [facility] 12460969119 108 (90 Base) Active TAKE 2 PUFFS MCG/ACT BY MOUTH EVERY 4 TO 6 HOURS NEEDED FOR SHORTNESS OF BREATH/WHEEZI NG Spironolactone [facility] 33660185942 25 MG Orally Active 1 tablet with Once a day food Results No Known Results Summary Purpose eClinicalWorks Submission
--- NOTE | 2017-12-16 08:36 | RAD REPORT ---
EXAM DESCRIPTION: CT - Ct Stroke Brain Wo Cont - 12/16/2017 8:16 am CLINICAL HISTORY: Right facial numbness COMPARISON: None. TECHNIQUE: Computed axial tomography of the head was obtained. IV contrast was not requested. All CT scans are performed using dose optimization technique as appropriate and may include automated exposure control or mA/KV adjustment according to patient size. FINDINGS: An intracranial bleed is not seen . The ventricles are normal in caliber. No extra-axial fluid collection is noted. Fluid within the sinuses/ mastoids is not seen. IMPRESSION: No acute intracranial abnormality is seen. If patient's symptoms persist MRI of the bra in would be recommended. Exam discussed with Manoj in the emergency room approximately 8 a.m. December 16, 2017
[2017-12-16] MEDS ORDERED: METOCLOPRAMIDE 10 MG/2mL INJ ONE (08:46)
[2017-12-16] MEDS ORDERED: CLOPIDOGREL 75 MG TABLET ONE (08:46)
[2017-12-16] MEDS ORDERED: hydrOXYzine HCl 50 MG/ML VIAL IM ONE (08:46)
[2017-12-16] MEDS ORDERED: ASPIRIN 81 MG CHEWABLE TABLET ONE (08:46)
[2017-12-16] MEDS ORDERED: FOLIC ACID 5 MG/ML VIAL ONE (08:47)
[2017-12-16 09:08] LABS: Barbiturates NEGATIVE (NEGATIVE); Benzodiazepines NEGATIVE (NEGATIVE); Cocaine NEGATIVE (NEGATIVE); METHAMPHETAM NEGATIVE (NEGATIVE); Methadone NEGATIVE (NEGATIVE); Opiates NEGATIVE (NEGATIVE); Phencyclidine NEGATIVE (NEGATIVE); THC Cannibis NEGATIVE (NEGATIVE)
[2017-12-16 09:09] LABS: Absolute Lymphocytes (CBC) 3.6 K/uL (0.7-4.9); Absolute Monocytes 0.9 K/uL (0.1-1.3); Absolute Neutrophil 8.2 K/uL (1.8-8.0); Basophils % 0.8 % (0-1.3); Hematocrit 42.7 % (36.0-45.0); Lymphocytes % 26.9 % (15.3-44.8); MCH 29.3 pg (27.0-35.0); MCV 86.9 fL (80-100); MPV 8.9 fL (7.6-11.3); Monocytes % 6.7 % (3.3-12.3); RBC Red Blood Cell Count 4.91 M/uL (3.86-4.86)
[2017-12-16 09:13] LABS: Protime INR 0.99
[2017-12-16 09:25] LABS: ALT/SGPT 39 U/L (12-78); AST/SGOT 37 U/L (15-37); Albumin 3.5 g/dL (3.4-5.0); Alkaline Phosphatase 76 U/L (45-117); BUN Blood Urea Nitrogen 10 mg/dL (7-18); Bicarbonate 23 mmol/L (21-32); Bilirubin Direct < 0.1 mg/dL (0-0.2); Bilirubin Total 0.5 mg/dL (0.2-1.0); Glucose Level 121 mg/dL (74-106); Magnesium 2.4 mg/dL (1.8-2.4); Protein, Total 7.8 g/dL (6.4-8.2); Sodium Level 139 mmol/L (136-145)
[2017-12-16 09:34] LABS: Potassium 4.4 mmol/L (3.5-5.1)
--- NOTE | 2017-12-16 09:35 | RAD REPORT ---
EXAM DESCRIPTION: Bob Single View12/16/2017 8:30 am CLINICAL HISTORY: Chest pain COMPARISON: May 2017 FINDINGS: The lungs appear clear of acute infiltrate. The heart is normal size IMPRESSION: No acute abnormalities displayed
[2017-12-16 10:01] LABS: Urine Blood NEGATIVE (NEG); Urine Glucose NEGATIVE (NEG); Urine Protein NEGATIVE (NEG); Urine pH 7.5 (5.0-7.0)
--- NOTE | 2017-12-16 10:02 | RAD REPORT ---
EXAM DESCRIPTION: MRI - Brain Wo Cont - 12/16/2017 9:50 am CLINICAL HISTORY: Right-sided numbness COMPARISON: Head CT December 16, 2017 TECHNIQUE: Axial, sagittal, and coronal magnetic resonance images of the brain were obtained. Contra st was not requested FINDINGS: No abnormal signal is present within the brain. Diffusion-weighted/ADC mapping does not reveal evidence of acute infarction. The ventricles are normal caliber. An extra-axial fluid collection is not present Mild signal is seen within the ethmoid sinus compatible with sinusitis. Mastoids are clear IMPRESSION: Unremarkable unenhanced brain MRI
--- NOTE | 2017-12-16 10:34 | ER ---
Nurse's Notes [facility] Name: Rubi Garrido Age: 27 yrs Sex: Female : 1990 Arrival Date: 12/16/2017 Time: 07:50 Bed 20 Private MD: Gene Driver Diagnosis: Migraine-Complex Presentation: 12/16 07:51 Presenting complaint: Patient states: Pt reports that this morning, at approx 0300 that ss she felt as if her R eye seemed like it was swelling then she began seeing dots. Pt reports she came home and went to sleep briefly, and woke up to her mother crying because she sounded as if she had slurred speech. Pt reports decreased sensation/ tingling to R arm and face. Transition of care: patient was not received from another setting of care. Onset of symptoms was December 16, 2017 at 03:00. Risk Assessment: Do you want to hurt yourself or someone else? Patient reports no desire to harm self or others. Initial Sepsis Screen: Does the patient meet any 2 criteria? No. Patient's initial sepsis screen is negative. Does the patient have a suspected source of infection? No. Patient's initial sepsis screen is negative. Care prior to arrival: Pt reports she took her once Daily dose of Lisinopril cause she thought perhaps her symptoms were because her blood pressure was too high. 07:51 Method Of Arrival: Ambulatory ss 07:51 Acuity: RACHEL 2 ss 07:51 An acute neurological deficit is present. The charge nurse has been notified. sv Pre-hospital glucose is not applicable to this patient. Triage Assessment: 09:13 The onset of the patients symptoms was more than three but less than six hours ago. The sv onset of the patients symptoms was December 16, 2017 at 03:00. Headache History: The patient has had previous headaches and this one is different than previous episodes, and this one is more severe than previous episodes. General: Appears in no apparent distress. obese, well developed, Behavior is cooperative, anxious. Pain: Denies pain. EENT: No signs and/or symptoms were reported regarding the EENT system. Neuro: Level of Consciousness is awake, alert, obeys commands, Oriented to person, place, time, situation, Electronics Installer are weak on right Moves all extremities. Full function Weakness in right arm(s) leg(s) Gait is steady, Speech is normal, Facial symmetry appears normal, Reports headache in entire that is the "worst ever", numbness in right side of forehead, right advent, right eye, right zygomatic area, right side of the nose, right cheek, right mandible, right arm and right leg weakness in right arm and right leg around 0300 that she was also seeing "black spots.". Cardiovascular: Patient's skin is warm and dry. Respiratory: Respiratory effort is even, unlabored, Respiratory pattern is regular, symmetrical. GI: No signs and/or symptoms were reported involving the gastrointestinal system. : No signs and/or symptoms were reported regarding the genitourinary system. Derm: Skin is normal. Musculoskeletal: Reports weakness in right arm and right leg. LAST PUTTER AWAY: 09:12 LMP N/A - Depo-provera sv Stroke Activation: Symptom onset < 3 hours Physician: Stroke Attending; Name: ; Notified At: ; Arrived At: Physician: Chief Stroke Resident; Name: ; Notified At: ; Arrived At: Physician: Stroke Resident; Name: ; Notified At: ; Arrived At: Physician: ED Attending; Name: ; Notified At: 07:57; Arrived At: 07:57 Physician: ED Resident; Name: ; Notified At: ; Arrived At: 09:12 Manoj Hernandez at bedside. sv Historical: - Allergies: 08:04 Latex, Natural Rubber; ss 08:04 Phenergan; ss 08:04 Zofran; ss 08:04 Tramadol HCl; ss - PMHx: 08:04 Asthma; CVA; Hypertension; PREECLAMPSIA; Hypothyroidism; ss - PSHx: 08:04 ; ss - Immunization history:: Adult Immunizations unknown. - Social history:: Smoking status: Patient/guardian denies using tobacco. - Ebola Screening: : No symptoms or risks identified at this time. Screenin:57 Abuse screen: Denies threats or abuse. Denies injuries from another. Nutritional ss screening: No deficits noted. Tuberculosis screening: No symptoms or risk factors identified. Never had TB. 09:13 Fall Risk None identified. sv Assessment: 07:57 Reassessment: CODE STROKE called, JANICE Moran at bedside to evaluate patient. Pt ss to CT at 0758 with Glo Mi RN. Pt is A\\T\\O x3, respirations remain even and unlabored. Mild drift noted to R upper extremities as well as decreased sensation to R arm and R leg. Speech is clear, no slurring or aphasia present at this time. Pt also c/o generalized headache that began this morning, 10/1o. 08:20 T-PA (Activase) Screening: Contraindications: Patient reports onset of signs and sv symptoms of stroke greater than 6 hours ago: No. 08:20 General: Appears in no apparent distress. Behavior is cooperative, anxious. Pain: sv Denies pain. Neuro: Level of Consciousness is awake, alert, obeys commands, Oriented to person, place, time, situation, Electronics Installer are weak on right Weakness in right arm(s) leg(s) Speech is slurred, Facial droop on right, Reports headache in entire numbness in right side of forehead, right advent, right eye, right zygomatic area, right side of the nose, right cheek, right mandible, right arm and right leg weakness in right arm and right leg. Cardiovascular: Rhythm is sinus rhythm. Respiratory: Airway is patent Respiratory effort is even, unlabored, Respiratory pattern is regular, symmetrical. GI: Reports nausea. Derm: Skin is pink, warm \\T\\ dry. 08:44 Reassessment: JANICE Perdomo and Dr. Campbell notified that patient passed swallow ss screening, reported that water went down well, she just became upset because she cannot feel the R side of her mouth. 08:50 Patient has been NPO before screening. The patient is alert, and able to follow sv commands. The patient exhibits slurred or garbled speech. Provider notified of the indication for Speech Therapy consult. The patient is not exhibiting difficulty speaking. The patient does not exhibit difficulty understanding words. The patient is able to swallow own secretions with no drooling or need for suction. Patient tolerated one teaspoon of water. No drooling, immediate coughing, gurgling, or clearing of the throat was noted. The patient tolerated 90mL of water. No drooling, immediate coughing, gurgling, or clearing of the throat was noted. Pt stated "It feels like I'm not swallowing it right. Am I spilling it on myself?" The patient passed the bedside swallow screening. Oral medications may be given as ordered. Contact Physician for further diet orders. Provider notified of bedside swallow screening results: Manoj CAMACHO. 09:50 Reassessment: Patient appears in no apparent distress at this time. Patient and/or sv family updated on plan of care and expected duration. Pain level reassessed. Patient is alert, oriented x 3, equal unlabored respirations, skin warm/dry/pink. 10:35 Reassessment: Patient appears in no apparent distress at this time. Patient and/or sv family updated on plan of care and expected duration. Pain level reassessed. Patient is alert, oriented x 3, equal unlabored respirations, skin warm/dry/pink. Pt ambulated around the hallway with no difficulty or dizziness. Patient states feeling better. Patient states symptoms have improved. Vital Signs: 07:55 BP 138 / 95; Pulse 80; Resp 16; Pulse Ox 98% on R/A; Weight 99.79 kg; Height 4 ft. 11 ss in. (149.86 cm); Pain 10/10; 08:09 Temp 96.8; sv 08:27 BP 133 / 103; Pulse 81; Resp 22; Pulse Ox 99% ; sv 09:53 BP 131 / 91; Pulse 59 MON; Resp 20; Pulse Ox 96% ; sv 10:28 BP 131 / 89; Pulse 62; Resp 16; Pulse Ox 99% ; sv 07:55 Body Mass Index 44.43 (99.79 kg, 149.86 cm) ss 09:53 Sinus bradycardia sv NIH Stroke Scale Scores: 08:01 NIHSS Score: 8 jr8 08:20 NIHSS Score: 8 sv 10:20 NIHSS Score: 0 sv 10:27 NIHSS Score: 0 jr8 ED Course: 07:50 Patient arrived in ED. sb2 07:50 Gene Driver MD is Private Physician. sb2 07:52 Glo Mi, GRANT is Primary Nurse. sv 07:52 [facility] Toledo [facility]. jr8 07:52 Seb Campbell MD is Attending Physician. jr8 07:57 Patient has correct armband on for positive identification. ss 07:57 Arm band placed on Patient placed in an exam room, on a stretcher, on pulse oximetry. sv 07:[address] via stretcher. sv 08:[address] back from CT. sv 08:03 Triage completed. ss 08:10 Missed attempt(s): 20 gauge in left antecubital area. Bleeding controlled, band aid sv applied, catheter tip intact. 08:13 Initial lab(s) drawn, by me, sent to lab. Inserted saline lock: 22 gauge in left hand, sv using aseptic technique. Blood collected. Flushed left hand with 5 ml normal saline. 08:16 CT Stroke Brain w/o Contrast In Process Unspecified. EDMS 08:20 Placed in gown. Bed in low position. Side rails up X2. Adult w/ patient. Cardiac sv monitor on. Pulse ox on. NIBP on. Door closed. Head of bed elevated. 08:27 X-ray(s) taken. sv 08:29 X-ray completed. Portable x-ray completed in exam room. Patient tolerated procedure mh1 well. 08:30 Stroke CXR 1 View In Process Unspecified. EDMS 08:34 EKG done, by pyrotechnist. reviewed by Seb Campbell MD. at1 08:51 Patient moved to MRI via stretcher. sv 08:56 Lab(s) recollected, by lift slab operator, sent to lab. sv 08:58 Urine collected: clean catch specimen, clear. mh5 08:59 UDS Sent. mh5 09:34 MRI - Brain Wo Cont In Process Unspecified. EDMS 09:54 Awaiting radiology results. Awaiting re-evaluation by ER provider. sv 10:31 Rian Garrison MD is Referral Physician. jr8 10:44 No provider procedures requiring assistance completed. IV discontinued, intact, sv bleeding controlled, No redness/swelling at site. Pressure dressing applied. Administered Medications: 08:53 Drug: hydrOXYzine 25 mg {Note: given IM to left deltoid.} Route: PO; sv 09:26 Follow up: Response: No adverse reaction sv 08:53 Drug: Aspirin 162 mg Route: PO; sv 09:26 Follow up: Response: No adverse reaction sv 08:53 Drug: PlaVIX 75 mg Route: PO; sv 09:26 Follow up: Response: No adverse reaction sv 09:26 Follow up: Response: No adverse reaction sv 08:54 Drug: foLIC Acid 1 mg Route: IVPB; Site: left hand; sv 08:56 Drug: Reglan 10 mg Route: IVP; Site: left hand; sv 09:26 Follow up: Response: No adverse reaction; Marked relief of symptoms; Nausea is decreasedsv Point of Care Testing: Blood Glucose: 07:57 Blood Glucose: 113 mg/dL; ss Ranges: Outcome: 10:34 Discharge ordered by . richard 10:45 Discharged to home ambulatory, with significant other. sv 10:45 Condition: stable 10:45 Discharge instructions given to patient, family, Instructed on discharge instructions, follow up and referral plans. medication usage, Demonstrated understanding of instructions, follow-up care, medications, Prescriptions given X 1. 10:47 Patient left the ED. NIH Stroke Scale - NIH Stroke Score Date: 12/16/2017 Time: 08:01 Total Score = 8 1a. Level of Consciousness (LOC) - 0(Alert) 1b. Level of Consciousness (LOC) (Year \\T\\ Age) - 0(Both) 1c. LOC Commands (Open \\T\\ Closes Eyes/Aids Counselor) - 0(Both) 2. Best Gaze (Lateral Gaze Paresis) - 0(Normal) 3. Visual Field Loss - 1(Partial hemianopia) 4. Facial Palsy - 1(Minor Paralysis) 5a. Left Arm: Motor (10-second hold) - 0(No drift) 5b. Right Arm: Motor (10-second hold) - 1(Drift) 6a. Left Leg: Motor (5-second hold - always test supine) - 0(No drift) 6b. Right Leg: Motor (5-second hold - always test supine) - 1(Drift) 7. Limb Ataxia (finger/nose \\T\\ heel/jones - test with eyes open) - 2(Present in two limbs) 8. Sensory Loss (pinprick arms/legs/face) - 1(Mild to moderate loss) 9. Best Language: Aphasia (description/naming/reading) - 0(No aphasia) 10. Dysarthria (speech clarity - read or repeat words) - 1(Mild to Moderate) 11. Extinction and Inattention (visual/tactile/auditory/spatial/personal) - 0(No abnormality) Initials: jrAda NIH Stroke Scale - NIH Stroke Score Date: 12/16/2017 Time: 08:20 Total Score = 8 1a. Level of Consciousness (LOC) - 0(Alert) 1b. Level of Consciousness (LOC) (Year \\T\\ Age) - 0(Both) 1c. LOC Commands (Open \\T\\ Closes Eyes/Aids Counselor) - 0(Both) 2. Best Gaze (Lateral Gaze Paresis) - 0(Normal) 3. Visual Field Loss - 1(Partial hemianopia) 4. Facial Palsy - 1(Minor Paralysis) 5a. Left Arm: Motor (10-second hold) - 0(No drift) 5b. Right Arm: Motor (10-second hold) - 1(Drift) 6a. Left Leg: Motor (5-second hold - always test supine) - 0(No drift) 6b. Right Leg: Motor (5-second hold - always test supine) - 1(Drift) 7. Limb Ataxia (finger/nose \\T\\ heel/jones - test with eyes open) - 2(Present in two limbs) 8. Sensory Loss (pinprick arms/legs/face) - 1(Mild to moderate loss) 9. Best Language: Aphasia (description/naming/reading) - 0(No aphasia) 10. Dysarthria (speech clarity - read or repeat words) - 1(Mild to Moderate) 11. Extinction and Inattention (visual/tactile/auditory/spatial/personal) - 0(No abnormality) Initials: NIH Stroke Scale - NIH Stroke Score Date: 12/16/2017 Time: 10:20 Total Score = 0 1a. Level of Consciousness (LOC) - 0(Alert) 1b. Level of Consciousness (LOC) (Year \\T\\ Age) - 0(Both) 1c. LOC Commands (Open \\T\\ Closes Eyes/Aids Counselor) - 0(Both) 2. Best Gaze (Lateral Gaze Paresis) - 0(Normal) 3. Visual Field Loss - 0(No visual loss) 4. Facial Palsy - 0(Normal) 5a. Left Arm: Motor (10-second hold) - 0(No drift) 5b. Right Arm: Motor (10-second hold) - 0(No drift) 6a. Left Leg: Motor (5-second hold - always test supine) - 0(No drift) 6b. Right Leg: Motor (5-second hold - always test supine) - 0(No drift) 7. Limb Ataxia (finger/nose \\T\\ heel/jones - test with eyes open) - 0(Absent) 8. Sensory Loss (pinprick arms/legs/face) - 0(Normal) 9. Best Language: Aphasia (description/naming/reading) - 0(No aphasia) 10. Dysarthria (speech clarity - read or repeat words) - 0(Normal) 11. Extinction and Inattention (visual/tactile/auditory/spatial/personal) - 0(No abnormality) Initials: marsha NIH Stroke Scale - NIH Stroke Score Date: 12/16/2017 Time: 10:27 Total Score = 0 1a. Level of Consciousness (LOC) - 0(Alert) 1b. Level of Consciousness (LOC) (Year \\T\\ Age) - 0(Both) 1c. LOC Commands (Open \\T\\ Closes Eyes/Aids Counselor) - 0(Both) 2. Best Gaze (Lateral Gaze Paresis) - 0(Normal) 3. Visual Field Loss - 0(No visual loss) 4. Facial Palsy - 0(Normal) 5a. Left Arm: Motor (10-second hold) - 0(No drift) 5b. Right Arm: Motor (10-second hold) - 0(No drift) 6a. Left Leg: Motor (5-second hold - always test supine) - 0(No drift) 6b. Right Leg: Motor (5-second hold - always test supine) - 0(No drift) 7. Limb Ataxia (finger/nose \\T\\ heel/jones - test with eyes open) - 0(Absent) 8. Sensory Loss (pinprick arms/legs/face) - 0(Normal) 9. Best Language: Aphasia (description/naming/reading) - 0(No aphasia) 10. Dysarthria (speech clarity - read or repeat words) - 0(Normal) 11. Extinction and Inattention (visual/tactile/auditory/spatial/personal) - 0(No abnormality) Initials: jrAda Signatures: Dispatcher [employer] Glo Mcmahan RN Loly Ferreira mh1 Megan Parker RN RN ss Roszak, Josh, PA PA jr8 Jamia Galvan, pump tender EKG [facility]1 Denise Khan 5 Tierra Hogan2
--- NOTE | 2017-12-16 10:35 | EDPHYS ---
Physician Documentation [facility] Name: Rubi Garrido Age: 27 yrs Sex: Female : 1990 Arrival Date: 12/16/2017 Time: 07:50 Bed 20 Private MD: Gene Driver ED Physician Seb Campbell HPI: 12/16 08:01 This 27 yrs old Female presents to ER via Unassigned with complaints of jr8 Headache, Slurred Speech. 08:01 The patient's problem is reported as dysphasia, slurred speech, slow speech, headache. jr8 Onset: The symptoms/episode began/occurred acutely, this morning, at 03:00. Duration: The episode is continuous. Context: symptoms became apparent at 03:00. occurred at work, occurred while the patient was working. The symptoms are alleviated by nothing. The symptoms are aggravated by nothing. Severity of symptoms: At their worst the symptoms were moderate in the emergency department the symptoms are unchanged. Patient's baseline: Neuro: alert and fully oriented, Motor: no deficits, Ambulation: walks without assistance, Speech: normal. The patient has not experienced similar symptoms in the past. The patient has not recently seen a physician. 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 - Social history:: Smoking status: Patient/guardian denies using tobacco. - Ebola Screening: : No symptoms or risks identified at this time. ROS: 08:01 Eyes: Negative for injury, pain, redness, and discharge, ENT: Negative for injury, jr8 pain, and discharge, Neck: Negative for injury, pain, and swelling, Cardiovascular: Negative for chest pain, palpitations, and edema, Respiratory: Negative for shortness of breath, cough, wheezing, and pleuritic chest pain, Abdomen/GI: Negative for abdominal pain, nausea, vomiting, diarrhea, and constipation, Back: Negative for injury and pain, MS/Extremity: Negative for injury and deformity, Skin: Negative for injury, rash, and discoloration. 08:01 Neuro: Positive for headache, numbness, speech changes, visual changes, weakness. Exam: 08:01 Head/Face: Normocephalic, atraumatic. Eyes: Pupils equal round and reactive to light, jr8 extra-ocular motions intact. Lids and lashes normal. Conjunctiva and sclera are non-icteric and not injected. Cornea within normal limits. Periorbital areas with no swelling, redness, or edema. ENT: Nares patent. No nasal discharge, no septal abnormalities noted. Tympanic membranes are normal and external auditory canals are clear. Oropharynx with no redness, swelling, or masses, exudates, or evidence of obstruction, uvula midline. Mucous membranes moist. Neck: Trachea midline, no thyromegaly or masses palpated, and no cervical lymphadenopathy. Supple, full range of motion without nuchal rigidity, or vertebral point tenderness. No Meningismus. Cardiovascular: Regular rate and rhythm with a normal S1 and S2. No gallops, murmurs, or rubs. Normal PMI, no JVD. No pulse deficits. Respiratory: Lungs have equal breath sounds bilaterally, clear to auscultation and percussion. No rales, rhonchi or wheezes noted. No increased work of breathing, no retractions or nasal flaring. Abdomen/GI: Soft, non-tender, with normal bowel sounds. No distension or tympany. No guarding or rebound. No evidence of tenderness throughout. Back: No spinal tenderness. No costovertebral tenderness. Full range of motion. Skin: Warm, dry with normal turgor. Normal color with no rashes, no lesions, and no evidence of cellulitis. MS/ Extremity: Pulses equal, no cyanosis. Neurovascular intact. Decreased Right side 08:01 Neuro: Orientation: to person, place, time \T\ situation. Mentation: is normal, Memory: is normal, Cranial nerves: CN I not tested, CN II- XII are normal as tested, extraocular movements are intact, facial droop noted on right, with forehead spared. Speech is slurred, Tongue strength is weak on movement to right, Cerebellar function: dysmetria is noted on the right, the patient is unable to track right heel to left jones, Motor: moves all fours, Sensation: numbness, that is mild, of the right face, arm, and leg, Gait: not tested. seizure activity, is not displayed by the patient, Abnormal movements: there are no abnormal movements. 08:07 Radiologist reports: Negative for acute findings jr8 Vital Signs: 07:55 BP 138 / 95; Pulse 80; Resp 16; Pulse Ox 98% on R/A; Weight 99.79 kg; Height 4 ft. 11 ss in. (149.86 cm); Pain 10/10; 08:09 Temp 96.8; sv 08:27 BP 133 / 103; Pulse 81; Resp 22; Pulse Ox 99% ; sv 09:53 BP 131 / 91; Pulse 59 MON; Resp 20; Pulse Ox 96% ; sv 10:28 BP 131 / 89; Pulse 62; Resp 16; Pulse Ox 99% ; sv 07:55 Body Mass Index 44.43 (99.79 kg, 149.86 cm) ss 09:53 Sinus bradycardia sv NIH Stroke Scale Scores: 08:01 NIHSS Score: 8 jr8 08:20 NIHSS Score: 8 sv 10:20 NIHSS Score: 0 sv 10:27 NIHSS Score: 0 jr8 MDM: 07:52 Patient medically screened. 8 08:01 ED course: Symptoms started at 0300 hours. Patient came in at 0750, almost 5 hours past jr8 onset. Patient outside of thrombolytic window therefore no indication for tPA. 10:27 Data reviewed: vital signs, nurses notes, lab test result(s), EKG, radiologic studies, jr8 CT scan, MRI. Data interpreted: Pulse oximetry: on room air is 96 %. Interpretation: normal. Counseling: I had a detailed discussion with the patient and/or guardian regarding: the historical points, exam findings, and any diagnostic results supporting the discharge/admit diagnosis, lab results, radiology results, the need for outpatient follow up, a neurologist, to return to the emergency department if symptoms worsen or persist or if there are any questions or concerns that arise at home. Response to treatment: the patient's symptoms have resolved after treatment. ED course: After treating the migraine. All neurologic symptoms resolved. Patient now with NIH of 0. Discussed this case with Dr. Garrison who agrees that this was a complex/hemiplegic like migraine. Will still put her on daily aspirin , mag, and folic acid until seen by him out patient guzmán. Patient knows to come back if worse. Will keep a diary if symptoms start again and if she has any aura associated with it. Patient is good with plan and will follow up. 12/16 07:59 Order name: Hepatic Function; Complete Time: 09:40 sv 12/16 07:59 Order name: UDS; Complete Time: 09:15 sv 12/16 07:59 Order name: Magnesium; Complete Time: 09:40 sv 12/16 07:59 Order name: Basic Metabolic Panel; Complete Time: 09:40 sv 12/16 07:59 Order name: CBC with Diff; Complete Time: 09:15 sv 12/16 07:59 Order name: Protime (+inr); Complete Time: 09:15 sv 12/16 07:59 Order name: Ptt, Activated; Complete Time: 09:15 sv 12/16 07:59 Order name: CT Stroke Brain w/o Contrast; Complete Time: 08:49 sv 12/16 07:59 Order name: Stroke CXR 1 View; Complete Time: 09:40 sv 12/16 08:30 Order name: MRI - Brain Wo Cont; Complete Time: 10:13 jr8 12/16 09:04 Order name: Urine Dipstick--Ancillary (enter results); Complete Time: 10:13 bd 12/16 09:04 Order name: Urine --Ancillary (enter results); Complete Time: 10:13 bd 12/16 07:59 Order name: EKG; Complete Time: 08:00 sv 12/16 07:59 Order name: Accucheck; Complete Time: 08:28 sv 12/16 07:59 Order name: Cardiac monitoring; Complete Time: 08:28 sv 12/16 07:59 Order name: EKG - Nurse/Tech; Complete Time: 09:34 sv 12/16 07:59 Order name: IV Saline Lock; Complete Time: 08:28 sv 12/16 07:59 Order name: Labs collected and sent; Complete Time: 08:28 sv 12/16 07:59 Order name: NPO; Complete Time: 08:28 sv 12/16 07:59 Order name: O2 Per Protocol; Complete Time: 08:29 sv 12/16 07:59 Order name: O2 Sat Monitoring; Complete Time: 08:29 sv 12/16 07:59 Order name: Stroke Swallow Screen; Complete Time: 08:29 sv 12/16 08:00 Order name: Urine Test (obtain specimen); Complete Time: 08:58 sv 12/16 08:00 Order name: Urine Dipstick-Ancillary (obtain specimen); Complete Time: 08:58 sv 12/16 08:37 Order name: Labs - recollect needed; Complete Time: 09:24 bd Administered Medications: 08:53 Drug: hydrOXYzine 25 mg {Note: given IM to left deltoid.} Route: PO; sv 09:26 Follow up: Response: No adverse reaction sv 08:53 Drug: Aspirin 162 mg Route: PO; sv 09:26 Follow up: Response: No adverse reaction sv 08:53 Drug: PlaVIX 75 mg Route: PO; sv 09:26 Follow up: Response: No adverse reaction sv 09:26 Follow up: Response: No adverse reaction sv 08:54 Drug: foLIC Acid 1 mg Route: IVPB; Site: left hand; sv 08:56 Drug: Reglan 10 mg Route: IVP; Site: left hand; sv 09:26 Follow up: Response: No adverse reaction; Marked relief of symptoms; Nausea is decreasedsv Point of Care Testing: Blood Glucose: 07:57 Blood Glucose: 113 mg/dL; ss Ranges: Critical Glucose Levels:Adult <50 mg/dl or >400 mg/dl <40 mg/dl or >180 mg/dl Disposition: 10:58 Co-signature as Attending Physician, Seb Campbell MD. rn Disposition: 12/16/17 10:34 Discharged to Home. Impression: Migraine - Complex. - Condition is Stable. - Discharge Instructions: Migraine Headache. - Prescriptions for Folic Acid 1 mg Oral Tablet - take 1 tablet by ORAL route once daily; 30 tablet. - Work release form, Medication Reconciliation Form, Thank You Letter, Antibiotic Education, Prescription Opioid Use form. - Follow up: Rian Garrison MD; When: 2 - 3 days; Reason: Recheck today's complaints, Continuance of care, Re-evaluation by your physician. - Problem is new. - Symptoms are resolved. - Notes: To take a daily 81 mg aspirin To take Magnesium Chloride twice a day (slo-mag) NIH Stroke Scale - NIH Stroke Score Date: 12/16/2017 Time: 08:01 Total Score = 8 1a. Level of Consciousness (LOC) - 0(Alert) 1b. Level of Consciousness (LOC) (Year \T\ Age) - 0(Both) 1c. LOC Commands (Open \T\ Closes Eyes/Photonics Technician) - 0(Both) 2. Best Gaze (Lateral Gaze Paresis) - 0(Normal) 3. Visual Field Loss - 1(Partial hemianopia) 4. Facial Palsy - 1(Minor Paralysis) 5a. Left Arm: Motor (10-second hold) - 0(No drift) 5b. Right Arm: Motor (10-second hold) - 1(Drift) 6a. Left Leg: Motor (5-second hold - always test supine) - 0(No drift) 6b. Right Leg: Motor (5-second hold - always test supine) - 1(Drift) 7. Limb Ataxia (finger/nose \T\ heel/jones - test with eyes open) - 2(Present in two limbs) 8. Sensory Loss (pinprick arms/legs/face) - 1(Mild to moderate loss) 9. Best Language: Aphasia (description/naming/reading) - 0(No aphasia) 10. Dysarthria (speech clarity - read or repeat words) - 1(Mild to Moderate) 11. Extinction and Inattention (visual/tactile/auditory/spatial/personal) - 0(No abnormality) Initials: jr8 NIH Stroke Scale - NIH Stroke Score Date: 12/16/2017 Time: 08:20 Total Score = 8 1a. Level of Consciousness (LOC) - 0(Alert) 1b. Level of Consciousness (LOC) (Year \T\ Age) - 0(Both) 1c. LOC Commands (Open \T\ Closes Eyes/Photonics Technician) - 0(Both) 2. Best Gaze (Lateral Gaze Paresis) - 0(Normal) 3. Visual Field Loss - 1(Partial hemianopia) 4. Facial Palsy - 1(Minor Paralysis) 5a. Left Arm: Motor (10-second hold) - 0(No drift) 5b. Right Arm: Motor (10-second hold) - 1(Drift) 6a. Left Leg: Motor (5-second hold - always test supine) - 0(No drift) 6b. Right Leg: Motor (5-second hold - always test supine) - 1(Drift) 7. Limb Ataxia (finger/nose \T\ heel/jones - test with eyes open) - 2(Present in two limbs) 8. Sensory Loss (pinprick arms/legs/face) - 1(Mild to moderate loss) 9. Best Language: Aphasia (description/naming/reading) - 0(No aphasia) 10. Dysarthria (speech clarity - read or repeat words) - 1(Mild to Moderate) 11. Extinction and Inattention (visual/tactile/auditory/spatial/personal) - 0(No abnormality) Initials: NIH Stroke Scale - NIH Stroke Score Date: 12/16/2017 Time: 10:20 Total Score = 0 1a. Level of Consciousness (LOC) - 0(Alert) 1b. Level of Consciousness (LOC) (Year \T\ Age) - 0(Both) 1c. LOC Commands (Open \T\ Closes Eyes/Photonics Technician) - 0(Both) 2. Best Gaze (Lateral Gaze Paresis) - 0(Normal) 3. Visual Field Loss - 0(No visual loss) 4. Facial Palsy - 0(Normal) 5a. Left Arm: Motor (10-second hold) - 0(No drift) 5b. Right Arm: Motor (10-second hold) - 0(No drift) 6a. Left Leg: Motor (5-second hold - always test supine) - 0(No drift) 6b. Right Leg: Motor (5-second hold - always test supine) - 0(No drift) 7. Limb Ataxia (finger/nose \T\ heel/jones - test with eyes open) - 0(Absent) 8. Sensory Loss (pinprick arms/legs/face) - 0(Normal) 9. Best Language: Aphasia (description/naming/reading) - 0(No aphasia) 10. Dysarthria (speech clarity - read or repeat words) - 0(Normal) 11. Extinction and Inattention (visual/tactile/auditory/spatial/personal) - 0(No abnormality) Initials: NIH Stroke Scale - NIH Stroke Score Date: 12/16/2017 Time: 10:27 Total Score = 0 1a. Level of Consciousness (LOC) - 0(Alert) 1b. Level of Consciousness (LOC) (Year \T\ Age) - 0(Both) 1c. LOC Commands (Open \T\ Closes Eyes/Photonics Technician) - 0(Both) 2. Best Gaze (Lateral Gaze Paresis) - 0(Normal) 3. Visual Field Loss - 0(No visual loss) 4. Facial Palsy - 0(Normal) 5a. Left Arm: Motor (10-second hold) - 0(No drift) 5b. Right Arm: Motor (10-second hold) - 0(No drift) 6a. Left Leg: Motor (5-second hold - always test supine) - 0(No drift) 6b. Right Leg: Motor (5-second hold - always test supine) - 0(No drift) 7. Limb Ataxia (finger/nose \T\ heel/jones - test with eyes open) - 0(Absent) 8. Sensory Loss (pinprick arms/legs/face) - 0(Normal) 9. Best Language: Aphasia (description/naming/reading) - 0(No aphasia) 10. Dysarthria (speech clarity - read or repeat words) - 0(Normal) 11. Extinction and Inattention (visual/tactile/auditory/spatial/personal) - 0(No abnormality) Initials: jrAda Signatures: Dispatcher [employer] EDMS Giselle Schultz Stephanie, RN RN sv Nieto, Roman, MD MD rn Smirch, Shelby, RN RN ss Roszak, Josh, PA PA jr8 Corrections: (The following items were deleted from the chart) 10:47 10:34 12/16/2017 10:34 Discharged to Home. Impression: Migraine - Complex. sv Condition is Stable. Forms are Medication Reconciliation Form, Thank You Letter, Antibiotic Education, Prescription Opioid Use. Follow up: Rian Garrison; When: 2 - 3 days; Reason: Recheck today's complaints, Continuance of care, Re-evaluation by your physician. Problem is new. Symptoms are resolved. jr8
[2017-12-16 11:10] VITALS: TEMP 96.8
[2017-12-16 11:15] VITALS: BP 131/89; O2SAT 99
--- NOTE | 2017-12-16 13:31 | EKG ---
Test Date: 2017-12-16 Test Time: 08:33:15 Mail Order Biller: GENE MEASUREMENT RESULTS: Intervals: Rate: 72 NV: 156 QRSD: 86 QT: 384 QTc: 420 [place]: P: 33 NV: 156 QRS: 3 T: 9 INTERPRETIVE STATEMENTS: Normal sinus rhythm Normal ECG Electronically Signed On 12-16-17 13:30:41 HOSPITAL SCIENTIST by Rodney Rooney
== END 2017-12-16 10:47 | disposition home or self-care (01) ==
LOC: ER 07:48
DX: G43.809 Other migraine, not intractable, without status migrainosus (principal); I10 Essential (primary) hypertension; Z86.73 Personal history of transient ischemic attack (TIA), and cerebral infarction without residual deficits; Z88.5 Allergy status to narcotic agent; Z88.8 Allergy status to other drugs, medicaments and biological substances; Z91.040 Latex allergy status; Z91.048 Other nonmedicinal substance allergy status
CPT/HCPCS: 36415; 70450; 70551; 71045; 80048; 80076; 80307; 81003; 81025; 82962; 83735; 85025; 85610; 85730; 93005; J2765; J3410

== ENCOUNTER 2018-05-31 15:06 | Emergency (ER) | payer OTHER, SELFPAY ==
--- OUTSIDE RECORDS SUMMARY | 2018-05-31 15:08 | XMS REPORT ---
:1990 Author Organization [facility] Address [address] [place] [address] [address] [place] [address] Care Team Providers Name Role Phone Unavailable Unavailable Unavailable Problems This patient has no known problems. Allergies, Adverse Reactions, Alerts This patient has no known allergies or adverse reactions. Medications This patient has no known medications.
--- OUTSIDE RECORDS SUMMARY | 2018-05-31 15:09 | XMS REPORT ---
[...] Start Date End Date Status Dosage Flagyl [facility] 17480410536 500 MG Orally June 10, June 17, Active 1 tablet Twice daily 2017 2017 Results No Known Results Summary Purpose eClinicalWorks Submission
--- OUTSIDE RECORDS SUMMARY | 2018-05-31 15:09 | XMS REPORT ---
[...] Status Dosage System Date Date Proventil HFA [facility] 47550160418 108 (90 Base) Active TAKE 2 MCG/ACT PUFFS BY MOUTH EVERY 4 TO 6 HOURS NEEDED FOR SHORTNESS OF BREATH/WHEE ZING Spironolactone [facility] 56936023984 25 MG Active TAKE 1 TABLET BY MOUTH EVERY DAY. DO NOT START UNTIL IS RULED OUT Qvar [facility] 30200275008 40 MCG/ACT Active 1 puff Inhalation Twice a day Montelukast ND 96074168848 10 MG Orally Active 1 tablet in Sodium Once a day the evening Lo Loestrin Fe ND 50147766408 1 MG-10 MCG / Active 1 tablet 10 MCG Orally Once a day Singulair ND 10274372387 10 MG Active TAKE 1 TABLET BY MOUTH EVERY DAY GNP Loratadine-D [facility] 41376284320 5-120 MG Orally Oct 27, Oct Active 1 tablet as 12HR every 12 hrs 2018 03, needed 2018 Fluticasone ND 52979028146 50 MCG/ACT Oct 27, Active 1 spray in Propionate Nasally Once a 2018 each day nostril Levothyroxine ND 91236006412 25 MCG Orally Active 1 tablet on Sodium Once a day an empty stomach in the morning Paroxetine HCl [facility] 98377913861 30 MG Active TAKE 1 TABLET BY MOUTH EVERY DAY Lisinopril [facility] 24809645028 40 MG Active TAKE 1 TABLET BY MOUTH EVERY DAY Results No Known Results Summary Purpose eClinicalWorks Submission
--- OUTSIDE RECORDS SUMMARY | 2018-05-31 15:09 | XMS REPORT ---
[...] Dosage System Date Date Lo Loestrin Fe [facility] 27995035712 1 MG-10 MCG / Active 1 tablet 10 MCG Orally Once a day Flonase ND 36180325936 50 MCG/ACT Active 2 spray in Nasally Once a each nostril day Nystatin-Triamcin [facility] 07186465731 538547-2.1 Active 1 application olone UNIT/GM to affected Externally area Twice a day Montelukast ND 18343663533 10 MG Orally Active 1 tablet in Sodium Once a day the evening Qvar [facility] 13359631734 40 MCG/ACT Active 1 puff Inhalation Twice a day Cromolyn Sodium [facility] 78463898510 4 % Active INSTILL 1 DROP IN THE AFFECTED EYE(S) 4 TIMES A DAY Lisinopril ND 97104335862 40 MG Orally Active 1 tablet Once a day Ciprofloxacin HCl ND 87720449258 500 MG Orally August Active 1 tablet every 12 hrs 2017 Levothyroxine ND 61310522410 25 MCG Orally Active 1 tablet on Sodium Once a day an empty stomach in the morning Singulair [facility] 67620384864 10 MG Orally Active 1 tablet in Once a day the evening Paroxetine HCl [facility] 28733199646 40 MG Orally Active 1 tablet in Once a day the morning Paroxetine HCl [facility] 40045946206 30 MG Active TAKE 1 TABLET BY MOUTH EVERY DAY Proventil HFA [facility] 23347912120 108 (90 Base) Active TAKE 2 PUFFS MCG/ACT BY MOUTH EVERY 4 TO 6 HOURS NEEDED FOR SHORTNESS OF BREATH/WHEEZI NG Spironolactone [facility] 31221038480 25 MG Orally Active 1 tablet with Once a day food Results No Known Results Summary Purpose eClinicalWorks Submission
--- OUTSIDE RECORDS SUMMARY | 2018-05-31 15:09 | XMS REPORT ---
[...] Dosage System Date Date Levothyroxine Sodium ND 47589380883 25 MCG Orally Active 1 tablet on Once a day an empty stomach in the morning Montelukast Sodium ND 95344898758 10 MG Orally Active 1 tablet in Once a day the evening Cromolyn Sodium [facility] 91127826231 4 % Active INSTILL 1 DROP IN THE AFFECTED EYE(S) 4 TIMES A DAY Paroxetine HCl ND 25716798605 40 MG Orally Active 1 tablet in Once a day the morning Nystatin-Triamcinolon ND 61217154493 139713-4.1 Active 1 e UNIT/GM application Externally to affected Twice a day area Lo Loestrin Fe ND 34607483905 1 MG-10 MCG / Active 1 tablet 10 MCG Orally Once a day Flonase ND 88761550289 50 MCG/ACT Active 2 spray in Nasally Once a each nostril day Singulair ND 98679093690 10 MG Orally Active 1 tablet in Once a day the evening Proventil HFA ND 81625572532 108 (90 Base) Active TAKE 2 PUFFS MCG/ACT BY MOUTH EVERY 4 TO 6 HOURS NEEDED FOR SHORTNESS OF BREATH/WHEEZ ING MedroxyPROGESTERone [facility] 35422356853 10 MG Orally May Active 1 tablet Acetate Once a day for , with food 10 days then 2017 2017 stop Qvar [facility] 70045348770 40 MCG/ACT Active 1 puff Inhalation Twice a day Spironolactone [facility] 87646627500 25 MG Orally Active 1 tablet Once a day with food Lisinopril [facility] 72902166703 40 MG Orally Active 1 tablet Once a day Results Name Result Date Reference Range Unit Abnormality Flag TEST URINE ----RESULTS neg [id number] URINALYSIS AUTO W/O SCOPE (05108) ----PROTEIN trace [id number] ----pH 5.5 [id number] ----NIT neg [id number] ----YENI neg [id number] ----URO 0.2 [id number] ----SPECIFIC GRAVITY 1.030 [id number] ----BLO neg [id number] ----BILIRUBIN neg [id number] ----KETONES neg [id number] ----GLUCOSE neg [id number] Summary Purpose eClinicalWorks Submission
[2018-05-31] MEDS ORDERED: IBUPROFEN 200 MG TAB PO ONE (15:46)
[2018-05-31] MEDS ORDERED: ONDANSETRON 4 MG (ODT) TAB ONE (15:46)
[2018-05-31 16:03] LABS: Urine Blood TRACE (NEG); Urine Glucose NEGATIVE (NEG); Urine Protein 1+ (NEG)
[2018-05-31 16:43] LABS: Urine Amorphous Sediment 1+ /HPF (NONE SEEN); Urine Bacteria 20-50 /HPF (<20); Urine Culture Reflex Order NOT NEEDED; Urine Mucus 1+ /HPF (NONE SEEN); Urine RBC <5 /HPF (NONE SEEN)
[2018-05-31] MEDS ORDERED: CEFTRIAXONE 1000 MG/VIAL ONE (17:00)
[2018-05-31] MEDS ORDERED: LIDOCAINE 1% MPF 2 ML AMPULE ONE (17:00)
--- NOTE | 2018-05-31 17:08 | ER ---
Nurse's Notes [facility] Name: Rubi Garrido Age: 27 yrs Sex: Female : 1990 Arrival Date: 05/31/2018 Time: 15:09 Bed 30 Private MD: Gene Driver Diagnosis: Acute UTI Presentation: 05/31 15:11 Presenting complaint: Patient states: burning with urination and pain to groin that aa5 began 2 days ago. Pt reports nausea, denies vomiting. 15:48 Transition of care: patient was not received from another setting of care. Onset of mg2 symptoms was May 29, 2018. Risk Assessment: Do you want to hurt yourself or someone else? Patient reports no desire to harm self or others. Initial Sepsis Screen: Does the patient meet any 2 criteria? No. Patient's initial sepsis screen is negative. Does the patient have a suspected source of infection? No. Patient's initial sepsis screen is negative. Care prior to arrival: None. 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 - Social history:: Smoking status: Patient/guardian denies using tobacco. - Ebola Screening: : No symptoms or risks identified at this time. - Family history:: not pertinent. - Hospitalizations: : No recent hospitalization is reported. Screenin:48 Abuse screen: Denies threats or abuse. Denies injuries from another. Nutritional mg2 screening: No deficits noted. Tuberculosis screening: No symptoms or risk factors identified. Fall Risk None identified. Assessment: 15:46 General: Appears in no apparent distress. comfortable, Behavior is calm, cooperative. mg2 Pain: Complains of pain in suprapubic area Pain does not radiate. Pain currently is 5 out of 10 on a pain scale. Quality of pain is described as burning, Pain began 2-3 days ago. Is intermittent. Neuro: Level of Consciousness is awake, alert, obeys commands, Oriented to person, place, time, situation. Cardiovascular: Capillary refill < 3 seconds Patient's skin is warm and dry. Respiratory: Airway is patent Respiratory effort is even, unlabored, Respiratory pattern is regular, symmetrical. GI: Bowel sounds present X 4 quads. Abd is soft and non tender. : Urine is clear, Reports burning with urination, since 2 days ago. EENT: No signs and/or symptoms were reported regarding the EENT system. Derm: Skin is intact, is healthy with good turgor, Skin is pink, warm \T\ dry. normal. Musculoskeletal: Circulation, motion, and sensation intact. Capillary refill < 3 seconds. 17:14 Reassessment: Patient states feeling better. mg2 Vital Signs: 15:13 BP 151 / 83; Pulse 103; Resp 18 S; Temp 97.4(TE); Pulse Ox 96% on R/A; Weight 106.59 kg aa5 (R); Height 5 ft. 0 in. (152.40 cm) (R); Pain 8/10; 17:14 BP 145 / 78; Pulse 90; Resp 18; Pulse Ox 100% on R/A; Pain 1/10; mg2 15:13 Body Mass Index 45.89 (106.59 kg, 152.40 cm) aa5 ED Course: 15:09 Patient arrived in ED. rg4 15:10 Gene Driver MD is Private Physician. rg4 15:12 Arm band placed on. aa5 15:18 Matthew Barrow MD is Attending Physician. wa 15:21 Dario Brooks, GRANT is Primary Nurse. mg2 15:30 Urine collected: clean catch specimen, clear, paul colored. jp3 15:34 Urine Culture Sent. jp3 15:35 Urine Microscopic Only Sent. jp3 15:49 Triage completed. mg2 15:51 Patient has correct armband on for positive identification. Pulse ox on. NIBP on. Door mg2 closed. Warm blanket given. 15:51 No provider procedures requiring assistance completed. mg2 17:15 Patient did not have IV access during this emergency room visit. mg2 Administered Medications: 15:36 Drug: Zofran 4 mg Route: PO; mg2 16:26 Follow up: Response: No adverse reaction; Marked relief of symptoms mg2 15:36 Drug: Motrin 600 mg Route: PO; mg2 16:25 Follow up: Response: No adverse reaction; Marked relief of symptoms mg2 16:51 Drug: Rocephin (cefTRIAXone) 1 grams Route: IM; Site: left gluteus; mg2 17:14 Follow up: Response: No adverse reaction; Medication administered at discharge. mg2 Outcome: 17:08 Discharge ordered by . ar 17:15 Discharged to home ambulatory. mg2 17:15 Condition: stable 17:15 Discharge instructions given to patient, Instructed on discharge instructions, follow up and referral plans. medication usage, Demonstrated understanding of instructions, follow-up care, medications, Prescriptions given X 1. 17:15 Patient left the ED. mg2 Addendum: 06/06/2018 18:24 Addendum: Culture Results: Positive urine culture. Bacteria is resistant to, has i w intermediate sensitivity, or is not tested against prescribed antibiotics. Report given to ALIN for further evaluation and then to orthopedic surgeon for follow up with patient. Phone call Attempt #1 phone not working, unable to leave Certified letter sent to listed address for patient. Signatures: Dalila Chan RN RN iw Calderon, Audri, RN RN cris5 Irma Rodrigues rg4 Matthew Barrow MD MD wa Gardose, Michele, RN RN mg2 Srinath Kim jp3
--- NOTE | 2018-05-31 17:08 | EDPHYS ---
Physician Documentation [facility] Name: Rubi Garrido Age: 27 yrs Sex: Female : 1990 Arrival Date: 05/31/2018 Time: 15:09 Bed 30 Private MD: Gene Driver ED Physician Matthew Barrow HPI: 05/31 16:04 This 27 yrs old Female presents to ER via Ambulatory with complaints of Pain wa With Urination. 16:04 The patient presents with urinary symptoms, dysuria. Onset: The symptoms/episode wa began/occurred 2 day(s) ago. Modifying factors: The symptoms are alleviated by nothing, the symptoms are aggravated by urinating. Associated signs and symptoms: Pertinent positives: nausea, chills, Pertinent negatives: fever, hematuria, vomiting. Severity of symptoms: At their worst the symptoms were moderate, in the emergency department the symptoms are unchanged. The patient has experienced a previous episode. The patient has not recently seen a physician. 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 - Social history:: Smoking status: Patient/guardian denies using tobacco. - Ebola Screening: : No symptoms or risks identified at this time. - Family history:: not pertinent. - Hospitalizations: : No recent hospitalization is reported. ROS: 16:05 Positive for urinary symptoms, burning with urination. wa 16:05 Eyes: Negative for injury, pain, redness, and discharge, ENT: Negative for injury, pain, and discharge, Neck: Negative for injury, pain, and swelling, Cardiovascular: Negative for chest pain, palpitations, and edema, Respiratory: Negative for shortness of breath, cough, wheezing, and pleuritic chest pain, Abdomen/GI: Negative for abdominal pain, nausea, vomiting, diarrhea, and constipation, Back: Negative for injury and pain, MS/Extremity: Negative for injury and deformity, Skin: Negative for injury, rash, and discoloration, Neuro: Negative for headache, weakness, numbness, tingling, and seizure. 16:05 Constitutional: Positive for chills, Negative for body aches, fever. 16:05 : Positive for urinary symptoms. 16:05 All other systems are negative. Exam: 16:06 Constitutional: This is a well developed, well nourished patient who is awake, alert, wa and in no acute distress. Head/Face: Normocephalic, atraumatic. Eyes: Pupils equal round and reactive to light, extra-ocular motions intact. Lids and lashes normal. Conjunctiva and sclera are non-icteric and not injected. Cornea within normal limits. Periorbital areas with no swelling, redness, or edema. ENT: Nares patent. No nasal discharge, no septal abnormalities noted. Tympanic membranes are normal and external auditory canals are clear. Oropharynx with no redness, swelling, or masses, exudates, or evidence of obstruction, uvula midline. Mucous membranes moist. Neck: Trachea midline, no thyromegaly or masses palpated, and no cervical lymphadenopathy. Supple, full range of motion without nuchal rigidity, or vertebral point tenderness. No Meningismus. Chest/axilla: Normal chest wall appearance and motion. Nontender with no deformity. No lesions are appreciated. Cardiovascular: Regular rate and rhythm with a normal S1 and S2. No gallops, murmurs, or rubs. Normal PMI, no JVD. No pulse deficits. Respiratory: Lungs have equal breath sounds bilaterally, clear to auscultation and percussion. No rales, rhonchi or wheezes noted. No increased work of breathing, no retractions or nasal flaring. Back: No spinal tenderness. No costovertebral tenderness. Full range of motion. Skin: Warm, dry with normal turgor. Normal color with no rashes, no lesions, and no evidence of cellulitis. MS/ Extremity: Pulses equal, no cyanosis. Neurovascular intact. Full, normal range of motion. Neuro: Awake and alert, GCS 15, oriented to person, place, time, and situation. Cranial nerves II-XII grossly intact. Motor strength 5/5 in all extremities. Sensory grossly intact. Cerebellar exam normal. Normal gait. Psych: Awake, alert, with orientation to person, place and time. Behavior, mood, and affect are within normal limits. 16:06 Abdomen/GI: Inspection: abdomen appears normal, Bowel sounds: normal, in all quadrants, Palpation: soft, in all quadrants, mild abdominal tenderness, in the suprapubic area. 17:11 Back: pain, is absent. wa 17:11 : CVA tenderness, is absent. ca Vital Signs: 15:13 BP 151 / 83; Pulse 103; Resp 18 S; Temp 97.4(TE); Pulse Ox 96% on R/A; Weight 106.59 kg aa5 (R); Height 5 ft. 0 in. (152.40 cm) (R); Pain 8/10; 17:14 BP 145 / 78; Pulse 90; Resp 18; Pulse Ox 100% on R/A; Pain 1/10; mg2 15:13 Body Mass Index 45.89 (106.59 kg, 152.40 cm) aa5 MDM: 15:18 Patient medically screened. ca 16:07 Differential diagnosis: r/o UTI as symptoms most consistent of. investigate for ca alternative dx if UA negative for infeciton. 17:06 Data reviewed: vital signs, nurses notes. Test interpretation: by ED physician or ca midlevel provider: UPT neg. UA noted for pyuria consistent w/ UTI. ED course: rocephin IM given for UTI. will d/c with keflex. 05/31 15:13 Order name: Urine Culture [facility] 05/31 15:13 Order name: Urine Microscopic Only; Complete Time: 16:45 snw 05/31 15:34 Order name: Urine Dipstick--Ancillary (enter results); Complete Time: 16:08 bd 05/31 15:34 Order name: Urine --Ancillary (enter results); Complete Time: 16:08 bd 05/31 15:13 Order name: Urine Test (obtain specimen); Complete Time: 15:34 snw 05/31 15:13 Order name: Urine Dipstick-Ancillary (obtain specimen); Complete Time: 15:34 snw Administered Medications: 15:36 Drug: Zofran 4 mg Route: PO; mg2 16:26 Follow up: Response: No adverse reaction; Marked relief of symptoms mg2 15:36 Drug: Motrin 600 mg Route: PO; mg2 16:25 Follow up: Response: No adverse reaction; Marked relief of symptoms mg2 16:51 Drug: Rocephin (cefTRIAXone) 1 grams Route: IM; Site: left gluteus; mg2 17:14 Follow up: Response: No adverse reaction; Medication administered at discharge. mg2 Disposition: 05/31/18 17:08 Discharged to Home. Impression: Acute UTI. - Condition is Stable. - Discharge Instructions: Urinary Tract Infection, Adult, [id number]. - Prescriptions for Keflex 500 mg Oral Capsule - take 1 capsule by ORAL route every 8 hours for 5 days; 15 capsule. - Medication Reconciliation Form, Thank You Letter, Antibiotic Education, Prescription Opioid Use, Work release form form. - Follow up: Private Physician; When: 2 - 3 days; Reason: Recheck today's complaints. - Problem is new. - Symptoms have improved. - Notes: take antibiotics as prescribed Signatures: Dispatcher [employer] EDMS Heidi Manzanares, HEM INSPECTOR-C HEM INSPECTOR-Csnw Gayathri aBrr, GRANT RN aa5 Matthew Barrow MD MD wa Gardose, Michele, RN RN mg2 Corrections: (The following items were deleted from the chart) 17:15 17:08 05/31/2018 17:08 Discharged to Home. Impression: Acute UTI. Condition is Stable. mg2 Forms are Work release form, Medication Reconciliation Form, Thank You Letter, Antibiotic Education, Prescription Opioid Use. Follow up: Private Physician; When: 2 - 3 days; Reason: Recheck today's complaints. Problem is new. Symptoms have improved. wa
[2018-05-31 17:32] VITALS: TEMP 97.4
[2018-05-31 17:34] VITALS: BP 145/78; O2SAT 100
== END 2018-05-31 17:15 | disposition home or self-care (01) ==
LOC: ER 15:06
DX: N39.0 Urinary tract infection, site not specified (principal); J45.909 Unspecified asthma, uncomplicated; I10 Essential (primary) hypertension; E03.9 Hypothyroidism, unspecified; Z88.5 Allergy status to narcotic agent; Z88.8 Allergy status to other drugs, medicaments and biological substances; Z91.040 Latex allergy status
CPT/HCPCS: 81003; 81015; 81025; 87077; 87086; 87088; 87186; 96372; 99284; J2001

== ENCOUNTER 2019-03-02 13:08 | Emergency (ER) | payer SELFPAY ==
--- OUTSIDE RECORDS SUMMARY | 2019-03-02 13:11 | XMS REPORT ---
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 Problem Sleep disturbance G47.9 Active Problem Intractable migraine without aura G43.011 Active and with status migrainosus Problem Thyroid disease E07.9 Active Problem Asthma, unspecified asthma J45.909 Active severity, unspecified whether complicated, unspecified whether persistent Problem Essential hypertension I10 Active Problem Dysthymia F34.1 Active Problem Hypertension, unspecified type I10 Active Problem Hyperthyroidism E05.90 Active Problem Asthma J45.909 Active Assessment Missed menses N92.6 Active Problem Fam hx-ischem heart disease Z82.49 Active Problem Polycystic disease, ovaries E28.2 Active Problem Anxiety F41.9 Active Problem BMI 45.0-49.9, adult Z68.42 Active Problem Allergic rhinitis J30.9 Active Problem Abnormal menses N92.6 Active Medications Medication Code Code Instructions Start End Status Dosage System Date Date Singulair [facility] 72106122920 10 MG Orally Active 1 tablet in Once a day the evening Cromolyn Sodium [facility] 24467508802 4 % Active INSTILL 1 DROP IN THE AFFECTED EYE(S) 4 TIMES A DAY Proventil HFA [facility] 45860583599 108 (90 Base) Active TAKE 2 PUFFS MCG/ACT BY MOUTH EVERY 4 TO 6 HOURS NEEDED FOR SHORTNESS OF BREATH/WHEEZI NG Lo Loestrin Fe ND 93438007754 1 MG-10 MCG / Active 1 tablet 10 MCG Orally Once a day Levothyroxine ND 58846795995 25 MCG Orally Active 1 tablet on Sodium Once a day an empty stomach in the morning Lisinopril ND 68313985019 40 MG Orally Active 1 tablet Once a day Flonase ND 56206767966 50 MCG/ACT Active 2 spray in Nasally Once a each nostril day Montelukast [facility] 47118937504 10 MG Orally Active 1 tablet in Sodium Once a day the evening Qvar [facility] 47048787594 40 MCG/ACT Active 1 puff Inhalation Twice a day Paroxetine HCl [facility] 69640382889 30 MG Active TAKE 1 TABLET BY MOUTH EVERY DAY Spironolactone [facility] 25739579566 25 MG Orally Active 1 tablet with Once a day food Nystatin-Triamcin [facility] 37570160089 067737-6.1 Active 1 application olone UNIT/GM to affected Externally area Twice a day Paroxetine HCl [facility] 78950284332 40 MG Orally Active 1 tablet in Once a day the morning Results No Known Results Summary Purpose eClinicalWorks Submission
--- OUTSIDE RECORDS SUMMARY | 2019-03-02 13:11 | XMS REPORT ---
:1990 Author [facility] Address [address] [place] [address] [address] [place] [address] Care Team Providers Name Role Phone Unavailable Unavailable Unavailable Problems This patient has no known problems. Allergies, Adverse Reactions, Alerts This patient has no known allergies or adverse reactions. Medications This patient has no known medications.
--- NOTE | 2019-03-02 14:04 | EDPHYS ---
Physician Documentation [facility] Name: Ruib Garrido Age: 28 yrs Sex: Female : 1990 Arrival Date: 03/02/2019 Time: 13:11 Bed 9 Private MD: ED Physician Seb Campbell HPI: 03/02 14:00 This 28 yrs old Female presents to ER via Ambulatory with complaints of Ear jr8 Pain. 14:00 The patient presents with pain. The complaints affect the right ear. Onset: The jr8 symptoms/episode began/occurred acutely, today. Modifying factors: The symptoms are alleviated by nothing, the symptoms are aggravated by nothing. Associated signs and symptoms: The patient has no apparent associated signs or symptoms. Severity of symptoms: At their worst the symptoms were mild in the emergency department the symptoms are unchanged. The patient has not experienced similar symptoms in the past. The patient has not recently seen a physician. Stated that she felt like something was in her ear. Had put some rubbing alcohol in it and then when she woke up this morning had what looked to be blood like material on pillow. 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 - Social history:: Smoking status: Patient denies any tobacco usage or history of. - Ebola Screening: : Patient negative for fever greater than or equal to 101.5 degrees Fahrenheit, and additional compatible Ebola Virus Disease symptoms Patient denies exposure to infectious person Patient denies travel to an Ebola-affected area in the 21 days before illness onset No symptoms or risks identified at this time. ROS: 14:00 Eyes: Negative for injury, pain, redness, and discharge, Neck: Negative for injury, jr8 pain, and swelling, Cardiovascular: Negative for chest pain, palpitations, and edema, Respiratory: Negative for shortness of breath, cough, wheezing, and pleuritic chest pain, Abdomen/GI: Negative for abdominal pain, nausea, vomiting, diarrhea, and constipation, Back: Negative for injury and pain, MS/Extremity: Negative for injury and deformity, Skin: Negative for injury, rash, and discoloration, Neuro: Negative for headache, weakness, numbness, tingling, and seizure. 14:00 ENT: Positive for drainage from ear(s), ear pain. Exam: 14:00 Head/Face: Normocephalic, atraumatic. Eyes: Pupils equal round and reactive to light, jr8 extra-ocular motions intact. Lids and lashes normal. Conjunctiva and sclera are non-icteric and not injected. Cornea within normal limits. Periorbital areas with no swelling, redness, or edema. Neck: Trachea midline, no thyromegaly or masses palpated, and no cervical lymphadenopathy. Supple, full range of motion without nuchal rigidity, or vertebral point tenderness. No Meningismus. Cardiovascular: Regular rate and rhythm with a normal S1 and S2. No gallops, murmurs, or rubs. Normal PMI, no JVD. No pulse deficits. Respiratory: Lungs have equal breath sounds bilaterally, clear to auscultation and percussion. No rales, rhonchi or wheezes noted. No increased work of breathing, no retractions or nasal flaring. Skin: Warm, dry with normal turgor. Normal color with no rashes, no lesions, and no evidence of cellulitis. MS/ Extremity: Pulses equal, no cyanosis. Neurovascular intact. Full, normal range of motion. Neuro: Awake and alert, GCS 15, oriented to person, place, time, and situation. Cranial nerves II-XII grossly intact. Motor strength 5/5 in all extremities. Sensory grossly intact. Cerebellar exam normal. Normal gait. 14:00 ENT: Nares patent. No nasal discharge, no septal abnormalities noted. Tympanic membranes are normal and external auditory canals are clear. Oropharynx with no redness, swelling, or masses, exudates, or evidence of obstruction, uvula midline. Mucous membranes moist. Vital Signs: 13:35 BP 148 / 105; Pulse 85; Resp 16; Temp 98.2; Pulse Ox 97% on R/A; Weight 102.06 kg; iw Height 5 ft. 0 in. (152.40 cm); Pain 8/10; 13:35 Body Mass Index 43.94 (102.06 kg, 152.40 cm) MDM: 13:52 Patient medically screened. jr8 14:00 Data reviewed: vital signs, nurses notes, and as a result, I will discharge patient. jr8 Data interpreted: Pulse oximetry: on room air is 97 %. Interpretation: normal. Counseling: I had a detailed discussion with the patient and/or guardian regarding: the historical points, exam findings, and any diagnostic results supporting the discharge/admit diagnosis, the need for outpatient follow up, a family practitioner, to return to the emergency department if symptoms worsen or persist or if there are any questions or concerns that arise at home. ED course: Discussed with patient that her TM and canal were unremarkable. Small amount of cerumen but otherwise no signs of discharge, infection, inflammation, or injury. Recommended ibuprofen for next couple of days. If worse to come back for further evaluation. Patient good with this plan . Administered Medications: No medications were administered Disposition: 16:48 Co-signature as Attending Physician, Seb Campbell MD. rn Disposition: 03/02/19 14:03 Discharged to Home. Impression: Otalgia, right ear. - Condition is Stable. - Discharge Instructions: Earache, Adult. - Work release form, Medication Reconciliation Form, Thank You Letter, Antibiotic Education, Prescription Opioid Use form. - Follow up: Private Physician; When: 5 - 6 days; Reason: Recheck today's complaints, Continuance of care, Re-evaluation by your physician. - Problem is new. - Symptoms are unchanged. Signatures: Dalila Chan RN RN iw Nieto, Roman, MD MD rn Roszak, Josh, PA PA jr8 Corrections: (The following items were deleted from the chart) 14:29 14:03 03/02/2019 14:03 Discharged to Home. Impression: Otalgia, right ear. Condition is iw Stable. Forms are Medication Reconciliation Form, Thank You Letter, Antibiotic Education, Prescription Opioid Use. Follow up: Private Physician; When: 5 - 6 days; Reason: Recheck today's complaints, Continuance of care, Re-evaluation by your physician. Problem is new. Symptoms are unchanged. jr8
--- NOTE | 2019-03-02 14:04 | ER ---
Nurse's Notes [facility] Name: Rubi Garrido Age: 28 yrs Sex: Female : 1990 Arrival Date: 03/02/2019 Time: 13:11 Bed 9 Private MD: Diagnosis: Otalgia, right ear Presentation: 03/02 13:34 Presenting complaint: Patient states: right ear pain since yesterday, feels like her iw ear drum is ruptured. Transition of care: patient was not received from another setting of care. Onset of symptoms was March 01, 2019. Risk Assessment: Do you want to hurt yourself or someone else? Patient reports no desire to harm self or others. Initial Sepsis Screen: Does the patient meet any 2 criteria? No. Patient's initial sepsis screen is negative. Does the patient have a suspected source of infection? No. Patient's initial sepsis screen is negative. Care prior to arrival: None. 13:34 Method Of Arrival: Ambulatory iw 13:34 Acuity: RACHEL 4 iw Triage Assessment: 14:00 General: Appears in no apparent distress. Behavior is calm, cooperative. 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 - Social history:: Smoking status: Patient denies any tobacco usage or history of. - Ebola Screening: : Patient negative for fever greater than or equal to 101.5 degrees Fahrenheit, and additional compatible Ebola Virus Disease symptoms Patient denies exposure to infectious person Patient denies travel to an Ebola-affected area in the 21 days before illness onset No symptoms or risks identified at this time. Screenin:00 Abuse screen: Denies threats or abuse. Denies injuries from another. Nutritional iw screening: No deficits noted. Tuberculosis screening: No symptoms or risk factors identified. Fall Risk None identified. Assessment: 14:00 General: Appears in no apparent distress. Behavior is calm, cooperative. Pain: iw Complains of pain in right ear. Neuro: Level of Consciousness is awake, alert, obeys commands, Oriented to person, place, time, situation. Cardiovascular: Patient's skin is warm and dry. Respiratory: Respiratory effort is even, unlabored, Respiratory pattern is regular, symmetrical. EENT: Reports pain in right ear. Derm: No deficits noted. Musculoskeletal: Range of motion: intact in all extremities. Vital Signs: 13:35 BP 148 / 105; Pulse 85; Resp 16; Temp 98.2; Pulse Ox 97% on R/A; Weight 102.06 kg; iw Height 5 ft. 0 in. (152.40 cm); Pain 8/10; 13:35 Body Mass Index 43.94 (102.06 kg, 152.40 cm) iw ED Course: 13:11 Patient arrived in ED. mr 13:35 Triage completed. iw 13:35 Arm band placed on. iw 13:48 Dalila Chan RN is Primary Nurse. iw 13:52 Manoj Toledo PA is PHCP. jr8 13:52 Seb Campbell MD is Attending Physician. jr8 14:00 Patient has correct armband on for positive identification. iw 14:00 No provider procedures requiring assistance completed. Patient did not have IV access iw during this emergency room visit. Administered Medications: No medications were administered Outcome: 14:03 Discharge ordered by . jr8 14:28 Discharged to home ambulatory. iw 14:28 Condition: good 14:28 Discharge instructions given to patient, Instructed on discharge instructions, follow up and referral plans. Demonstrated understanding of instructions, follow-up care. 14:29 Patient left the ED. iw Signatures: Paula Pond mr Dalila Chan, RN RN iw Manoj Toledo PA PA jr8
[2019-03-02 20:45] VITALS: BP 148/105; TEMP 98.2; O2SAT 97
== END 2019-03-02 14:29 | disposition home or self-care (01) ==
LOC: ER 13:08
DX: H92.01 Otalgia, right ear (principal); I10 Essential (primary) hypertension; Z88.6 Allergy status to analgesic agent; Z88.8 Allergy status to other drugs, medicaments and biological substances; Z91.040 Latex allergy status; Z91.048 Other nonmedicinal substance allergy status
CPT/HCPCS: 99281

== ENCOUNTER 2024-05-26 20:36 | Emergency (ER) | payer OTHER, SELFPAY ==
--- OUTSIDE RECORDS SUMMARY | 2024-05-26 20:40 | XMS REPORT | Continuity of Care Document ---
Author Name Unknown Address [address] [facility] [address] [place] [address] Organization [facility] [place] Address [address] [facility] [address] [place] [address] Care Team Providers Care Optical Instrument Assembly Supervisor Name Role Phone Elsi Reese Attending Clinician Doctor Unassigned, Edgar Attending Clinician U navailable Raju_P Attending Clinician Unavailable Raju_P Admitting Clinician Unavailable Payers Payer Name Policy Type Policy Number Effective Date Expirati on Date Source COUNT INCLUDES THE [facility] MEDICAID [id number] 2014 00:00:00 Problems Condition Name Condition Details Condition Category Status Onset Date Resolution Date Last Treatment Date Treating Clinician Comments Source PCOS (polycysti c ovarian syndrome) PCOS (polycysti c ovarian syndrome) Disease Active 2017-02 00:00: 00 [facility] Absence of menstruati on Absence of menstruati on Disease Active 2017-02 00:00: 00 [facility] Anti-TPO antibodies present Anti-TPO antibodies present Disease Active 03-11 00:00: 00 [facility] Enteritis Enteritis Disease Active 09-23 00:00: 00 [facility] HTN in , chronic HTN in , chronic Disease Active 03-04 00:00: 00 [facility] Abdominal pain affecting , antepartum Abdominal pain affecting , antepartum Disease Active 09-30 00:00: 00 [facility] Latex allergy Latex allergy Disease Active 09-24 00:00: 00 [facility] Habitual aborter not currently Habitual aborter not currently Disease Active 06-28 00:00: 00 [facility] Abnormal glucose tolerance in mother complicati ng Abnormal glucose tolerance in mother complicati ng Disease Active 05-24 00:00: 00 [facility] Vision loss Vision loss Disease Active 05-23 00:00: 00 [facility] Hypertensi on Hypertensi on Disease Active 05-23 00:00: 00 [facility] Abnormal maternal glucose tolerance, antepartum Abnormal maternal glucose tolerance, antepartum Disease Active 05-22 00:00: 00 [facility] Vision loss, right eye Vision loss, right eye Disease Active 05-22 00:00: 00 [facility] Thromboemb olism in , first trimester Thromboemb olism in , first trimester Disease Active 05-22 00:00: 00 [facility] on oral contracept diana on oral contracept diana Disease Active 05-14 00:00: 00 [facility] Obesity in , first trimester Obesity in , first trimester Disease Active 05-14 00:00: 00 [facility] Previous delivery affecting , antepartum Previous delivery affecting , antepartum Disease Active 05-14 00:00: 00 [facility] Mild intermitte nt asthma without complicati on Mild intermitte nt asthma without complicati on Disease Active 05-14 00:00: 00 [facility] Headache in , antepartum , first trimester Headache in , antepartum , first trimester Disease Active 05-14 00:00: 00 [facility] Chronic hypertensi on in , first trimester Chronic hypertensi on in , first trimester Disease Active 05-14 00:00: 00 [facility] Hx of preeclamps ia, prior , currently , first trimester Hx of preeclamps ia, prior , currently , first trimester Disease Active 05-14 00:00: 00 [facility] High-risk supervisio n, first trimester High-risk supervisio n, first trimester Disease Active 2016-0 4-05 00:00: 00 [facility] Hypothyroi d Hypothyroi d Disease Active 04-18 00:00: 00 [facility] Morbid obesity Morbid obesity Disease Active 04-18 00:00: 00 [facility] H/O: H/O: Disease Active 8-18 00:00: 00 Overview: [facility]: Admit date 02/19/12Pr eoperativ e/Postope rative Dx: at 31 3/7 wk gestation , 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 [facility] Asthma Asthma Disease Active 06-23 00:00: 00 Overview: ICD10 Diagnosis Term Sex Therapist Utility [facility] Generalize d anxiety disorder Generalize d anxiety disorder Disease Active 06-23 00:00: 00 [facility] Depression Depression Disease Active 06-23 00:00: 00 [facility] Dysplasia of cervix Dysplasia of cervix Disease Active 06-23 00:00: 00 Overview: Colpo completed in [id number] Diagnosis Term Sex Therapist Utility [facility] Hyperthyro idism Hyperthyro idism Problem Active [facility] Anxiety Anxiety Problem Active [facility] Asthma Asthma Problem Active [facility] Scar conditions and fibrosis of skin Scar conditions and fibrosis of skin Problem Active [facility] Pain, unspecifie d Pain, unspecifie d Problem Active [facility] Abnormal menses Abnormal menses Problem Active [facility] Allergic rhinitis Allergic rhinitis Problem Active [facility] Polycystic disease, ovaries Polycystic disease, ovaries Problem Active [facility] BMI 45.0-49.9, adult BMI 45.0-49.9, adult Problem Active [facility] Fam hx-ischem heart disease Fam hx-ischem heart disease Problem Active [facility] Hypertensi on, unspecifie d type Hypertensi on, unspecifie d type Problem Active [facility] Sleep disturbanc e Sleep disturbanc e Problem Active [facility] Intractabl e migraine without aura and with status migrainosu s Intractabl e migraine without aura and with status migrainosu s Problem Active [facility] Thyroid disease Thyroid disease Problem Active [facility] Dysthymia Dysthymia Problem Active [facility] Allergies, Adverse Reactions, Alerts Allergy Name Allergy Type Status Severity Reaction(s) Onset Date Inactive Date Treating Clinician Comments Source ONDANSET KEISHA HCL (PF) DRUG Active ITCHING 05-15 00:00: 00 [facility] Ondanset keisha Hcl (Pf) Propensi ty to adverse reaction s Active Itching 05-15 00:00: 00 [facility] PROMETHA ZINE HCL DRUG INGREDI Active Rash 08-08 00:00: 00 [facility] Prometha zine Hcl Propensi ty to adverse reaction s Active Rash 08-08 00:00: 00 itching [facility] LATEX, NATURAL RUBBER Drug Class Active Rash 06-23 00:00: 00 [facility] TRAMADOL DRUG INGREDI Active Hallucinates 06-23 00:00: 00 [facility] Latex, Natural Rubber Propensi ty to adverse reaction s Active Rash 06-23 00:00: 00 [facility] Tramadol Propensi ty to adverse reaction s Active Hallucinatio ns 15 00:00: 00 [facility] LATEX Adverse Reaction Active Info Not Available [facility] Social History Social Habit Start Date Stop Date Quantity Comments Source Sex Assigned At [facility] Exposure to SARS-CoV-2 (event) Not sure [facility] Tobacco use and exposure 2020-02-01 00:00:00 2020-02-01 00:00:00 Never used [facility] Alcohol intake 2020-02-01 00:00:00 2020-02-01 00:00:00 Current drinker of alcohol (finding) [facility] Alcohol Comment 2012-06-23 00:00:00 2012-06-23 00:00:00 socially, once a month [facility] Smoking Status Start Date Stop Date Source Never smoker [facility] Medications Ordered Medication Name Filled Medication Name Start Date Stop Date Current Medication? Ordering Clinician Indication Dosage Frequency Signature (SIG) Comments Components Source ketorolac (TORADOL) injection 30 mg 2019-02 05:54: 00 02-01 05:56 :00 No 30mg 30 mg, Slow IV Push, ONCE, 1 dose, 02/03/20 at 0000, MUNIRA
Fa culty member approving Restricted medication : ELSI GILBERT [facility] doxycycline hyclate (Vibramycin ) capsule 100 mg 2019-02 08:30: 00 02-01 07:29 :00 No 100mg 100 mg, Oral, ONCE, 1 dose, Caterina 02/02/20 at 0230, MUNIRA
Re ason for Anti-Infec tive: Documented Infection< br>Documen kne Infection Site: Skin / Soft Tissue
Duration of Therapy: Other (see Comments) [facility] cefTRIAXone (ROCEPHIN) 1,000 mg in NaCl 0.9% (NS) 50 mL MINI-BAG 2019-02 08:30: 00 02-01 20:29 :00 No 1000mg 1,000 mg, IV Piggyback, ONCE, 1 dose, Caterina 02/02/20 at 0230, 50 mL
Reas on for Anti-Infec tive: Documented Infection< br>Documen ken Infection Site: Skin / Soft Tissue
Duration of Therapy: Other (see Comments) [facility] iohexol (OMNIPAQUE 350 BULK-150 mL) injection 120 mL 2019-02 06:30: 00 02-01 06:30 :00 No 120mL 120 mL, Intravenou s, ONCE, 1 dose, Caterina 02/02/20 at 0030, Routine [facility] NaCl 0.9% (NS) bolus infusion 1,000 mL 2019-02 06:15: 00 02-01 06:30 :00 No 1000mL at 999 mL/hr, 1,000 mL, IV Infusion, ONCE, 1 dose, [facility] 02/02/20 at 0015, STAT [facility] doxycycline hyclate 100 mg capsule 2019-02 00:00: 00 Yes [id number] 100mg Take 1 capsule by mouth 2 (two) times daily. [facility] cephALEXin (KEFLEX) 500 mg capsule 2019-02 00:00: 00 02-01 00:00 :00 No [id number] 500mg Take 1 capsule by mouth 3 (three) times daily for 10 days. [facility] LISINOPRIL ORAL 2017-02 21:18: 06 Yes 40mg Take 40 mg by mouth at bedtime. [facility] MULTIVITAMI N ORAL 2017-02 21:18: 06 Yes Take by mouth. [facility] FOLIC ACID ORAL 2017-02 21:18: 06 Yes Take by mouth. [facility] LEVOTHYROXI NE 175 mcg tablet 07-20 00:00: 00 Yes [id number] 175ug TAKE 1 TABLET BY MOUTH EVERY MORNING [facility] blood sugar diagnostic (GE100 BLOOD GLUCOSE TEST STRIP) strip 15 00:00: 00 Yes Use as directed [facility] Lo Loestrin Fe Lo Loestrin Fe Yes Terra Carrasquillo [address] [facility] Montelukast Sodium Montelukast Sodium Yes Terra Carrasquillo 1 tablet in the evening [facility] Paroxetine HCl Paroxetine HCl Yes Terra Carrasquillo TAKE 1 TABLET BY MOUTH EVERY DAY [facility] Proventil HFA Proventil HFA Yes Terra Carrasquillo TAKE 2 PUFFS BY MOUTH EVERY 4 TO 6 HOURS NEEDED FOR SHORTNESS OF BREATH/WHE EZING [facility] Singulair Singulair Yes Terra Carrasquillo 1 tablet in the evening [facility] Cromolyn Sodium Cromolyn Sodium Yes Terra Carrasquillo INSTILL 1 DROP IN THE AFFECTED EYE(S) [address] [facility] Levothyroxi ne Sodium Levothyroxi ne Sodium Yes Terra Carrasquillo 1 tablet on an empty stomach in the morning [facility] Lisinopril Lisinopril Yes Terra Carrasquillo [address] [facility] Flonase Flonase Yes Terra Carrasquillo 2 spray in each nostril [facility] Qvar Qvar Yes Terra Carrasquillo [address] [facility] Spironolact one Spironolact one Yes Terra Carrasquillo [address] [facility] Nystatin-Tr iamcinolone Nystatin-Tr iamcinolone Yes Terra Carrasquillo 1 applicatio n to affected area [facility] Paroxetine HCl Paroxetine HCl Yes Terra Carrasquillo 1 tablet in the morning [facility] Vital Signs Vital Name Observation Time Observation Value Comments S ource Systolic blood pressure 2020-02-02 07:46:28 131 mm[Hg] [facility] Diastolic blood pressure 2020-02-02 07:46:28 83 mm[Hg] [facility] Heart rate 2020-02-02 07:46:28 93 /min [facility] Respiratory rate 2020-02-02 07:46:28 16 /min [facility] Oxygen saturation in Arterial blood by Pulse oximetry 2020-02-02 07:46:28 98 /min [facility] Body temperature 2020-02-02 04:58:00 37.44 Yolette [facility] Body height 2020-02-02 04:58:00 149.9 cm [facility] Body weight 2020-02-02 04:58:00 100.699 kg [facility] BMI 2020-02-02 04:58:00 44.84 kg/m2 [facility] Procedures Procedure Date / Time Performed Performing Clinicia n Source CT ABDOMEN PELVIS W CONTRAST 2020-02-02 06:35:41 Elsi Gilbert [facility] POCT TEST 2020-02-02 05:24:00 Kenn Tello [facility] EXTRA TUBE LT. BLUE 2020-02-02 05:22:00 Elsi Gilbert [facility] EXTRA TUBE URINE CULTURE 2020-02-02 05:22:00 Elsi Gilbert [facility] EXTRA TUBE SST 2020-02-02 05:22:00 Elsi Gilbert [facility] URINALYSIS 2020-02-02 05:22:00 Elsi Gilbert [facility] BASIC METABOLIC PANEL (NA, K, CL, CO2, GLUCOSE, BUN, CREATININE, CA) 2020-02-02 05:20:00 Kenn Tello [facility] CBC WITH DIFF 2020-02-02 05:20:[address] [facility] NOTICE OF PRIVACY PRACTICES 2020-02-02 04:40:38 Doctor Unassigned, Edgar [facility] NOTICE OF PRIVACY PRACTICES 2020-02-02 04:39:25 Doctor Unassigned, Edgar [facility] CONSENT/REFUSAL FOR DIAGNOSIS AND TREATMENT 2020-02-02 04:39:10 Doctor Unassigned, Edgar [facility] Encounters Start Date/Time End Date/Time Encounter Type Admission Type Attending [facility] Care Facility Care Department Encounter ID Source 2020-12-08 13:04:45 Emergency [facility] [id number] [facility] 2020-02-01 22:43:00 2020-02-02 01:49:00 Emergency Elsi Gilbert [facility] 1..[id number] [facility] 2020-02-01 00:00:00 2020-02-01 00:00:00 Orders Only Doctor Unassigned, Edgar [facility] 1..840.114 [id number] [facility] 2019-05-04 09:54:00 2019-05-04 09:54:00 Outpatient Luisu_P [facility] [id number] [facility] 2017-10-27 08:45:00 2017-10-27 08:45:00 Outpatient [facility] t [facility] [id number] [facility] 2017-10-08 09:45:00 2017-10-08 09:45:00 Outpatient [facility] [id number] [facility] 2017-08-07 11:45:00 2017-08-07 11:45:00 Outpatient [facility] [id number] [facility] 2017-06-10 09:25:00 2017-06-10 09:25:00 Outpatient [facility] [id number] [facility] 2017-06-03 10:30:00 2017-06-03 10:30:00 Outpatient [facility] [id number] [facility] Results Test Description Test Time Test Comments Results Resul t Comments Source CT ABDOMEN PELVIS W CONTRAST 2020-01-11 07:14:09 1. Soft tissue stranding and skin thickening of the medial right gluteusand extending to the gluteal cleft likely related to cellulitis. No softtissue fluid collection or abscess is present. No perianal abscessidentified. 2. Fatty liver and hepatomegaly. RL: [id number]: [id number] End of Report EXAM: CT ABDOMEN PELVIS W CONTRAST Ordering Physician: ? ?ELSI ?OFELIA HISTORY: Abdominal Pain. Perianal abscess. COMPARISON: none TECHNIQUE: CT of the abdomen and pelvis with IV contrast. Coronal andsagittal reformatted images were obtained. CT performed according to Brittaniecijayme. CT OF THE ABDOMEN WITH IV CONTRAST:The lung bases are clear. ?The extreme dome of the liver is excluded fromthe kevxx-if-phoc. There is diffuse fatty infiltration of the liver andmild hepatomegaly. Liver measures 20 cm in AP length and 21.9 cm incraniocaudal length. ?The gallbladder is normal. The spleen is normal. Thepancreas is normal. The adrenals are normal. ?The kidneys are normal. Theintraabdominal large and small bowel are normal. The appendix is seen inthe right lower quadrant and is normal. The intra-abdominal vasculature isnormal. There is no free fluid. ?There is no free air or pathologiclymphadenop athy. CT OF THE PELVIS WITH IV CONTRAST:The rectum and sigmoid are normal. The anus appears unremarkable. Fatattenuation the ischiorectal and ischioanal fossa appears normal. No fluidcollection is present. The distal ureters and bladder are normal. ?There isno free fluid or pathologic lymphadenopathy in the pelvis. There is mild soft tissue stranding seen in the right medial aspect of thegluteal cleft with associated skin thickening. There is no clear ulcerationor soft tissue fluid collection identified. Osseous structures areunremarkable. [facility], Radiant Results Inft User - 02/02/2020 1:15 AM CSTEXAM: CT ABDOMEN PELVIS W CONTRASTOrdering Physician: ELSI GILBERT HISTORY: Abdominal Pain. Perianal abscess.COMPARISON: noneTECHNIQUE: CT of the abdomen and pelvis with IV contrast. Coronal andsagittal reformatted images were obtained. CT performed according to ALARAprinciples.CT OF THE ABDOMEN WITH IV CONTRAST:The lung bases are clear. The extreme dome of the liver is excluded fromthe wmffa-or-sifj. There is diffuse fatty infiltration of the liver andmild hepatomegaly. Liver measures 20 cm in AP length and 21.9 cm incraniocaudal length. The gallbladder is normal. The spleen is normal. Thepancreas is normal. The adrenals are normal. The kidneys are normal. Theintraabdominal large and small bowel are normal. The appendix is seen inthe right lower quadrant and is normal. The intra-abdominal vasculature isnormal. There is no free fluid. There is no free air or pathologiclymphadenop athy.CT OF THE PELVIS WITH IV CONTRAST:The rectum and sigmoid are normal. The anus appears unremarkable. Fatattenuation the ischiorectal and ischioanal fossa appears normal. No fluidcollection is present. The distal ureters and bladder are normal. There isno free fluid or pathologic lymphadenopathy in the pelvis.There is mild soft tissue stranding seen in the right medial aspect of thegluteal cleft with associated skin thickening. There is no clear ulcerationor soft tissue fluid collection identified. Osseous structures areunremarkable. IMPRESSION1. Soft tissue stranding and skin thickening of the medial right gluteusand extending to the gluteal cleft likely related to cellulitis. No softtissue fluid collection or abscess is present. No perianal abscessidentified.2. Fatty liver and hepatomegaly.RL: [id number]: [id number] of Report [facility] (NA, K, CL, CO2, GLUCOSE, BUN, CREATININE, CA)2020-02-02 06:05:00* Test Item Value Reference Range Interpretation Comme nts NA (test code = 2983044803) 137 mmol/L 135-145 K (test code = 7843970145) 3.6 mmol/L 3.5-5 CL (test code = 0908497905) 101 mmol/L 98-108 CO2 TOTAL (test code = 7158418635) 26 mmol/L 23-31 AGAP (test code = 9139371622) 2-16 BUN (test code = 5789021727) 8 mg/dL 7-23 GLUCOSE (test code = 1557629764) 335 mg/dL 70-110 H CREATININE (test code = 0769576082) 0.45 mg/dL 0.5-1.04 L CALCIUM (test code = 1864043582) 9.0 mg/dL 8.6-10.6 eGFR Calculation (Non-) (test code = 3770872460) mL/min/1.73m2 eGFR Calculation () (test code = 3578887850) mL/min/1.73m2 KAILYN (test code = KAILYN) Association of Glomerular Filtration Rate (GFR) and Staging of Kidney Disease* + --+ --+ ------+| GFR (mL/min/1.73 m2) ?| With Kidney Damage ?| ?Without Kidney Damage+ --------+ --------+ +| ?>90 ?| ?Stage one ?| ? Normal ?+ ---+ ---+ -------+| ?60-89 ?| ?Stage two ?| ? Decreased GFR ? + --+ --+ ------+| ?30-59 ?| ?Stage three ?| ? Stage three ? + --+ --+ ------+| ?15-29 ?| ?Stage four ? | ? Stage four ?+ ---+ ---+ -------+| ?<15 (or dialysis) ? ?| ?Stage five ? | ? Stage five ?+ ---+ ---+ -------+ *Each stage assumes the associated GFR level has been in effect for at least three months. ?Stages 1 to 5, with or without kidney disease, indicate chronic kidney disease. Notes: Determination of stages one and two (with eGFR >59mL/min/1.73 m2) requires estimation of kidney damage for at least three months as defined by structural or functional abnormalities of the kidney, manifested by either:Pathological abnormalities or Markers of kidney damage (including abnormalities in the composition of the blood or urine or abnormalities in imaging tests). Lab Interpretation (test code = 99806-0) Abnormal [facility] WITH [id number] 05:40:00* Test Item Value Reference Range Interpretation Comme nts WBC (test code = 6690-2) See_Comment [Automated [employer]] The system which generated this result transmitted reference range: 4.30 - 11.10 10*3/?L. The reference range was not used to interpret this result as normal/abnormal. RBC (test code = 789-8) See_Comment H [[employer]] The system which generated this result transmitted reference range: 3.93 - 5.25 10*6/?L. The reference range was not used to interpret this result as normal/abnormal. HGB (test code = 718-7) 15.8 g/dL 11.6-15 H HCT (test code = 4544-3) 47.8 % 35.7-45.2 H MCV (test code = 787-2) 87.1 fL 80.6-95.5 MCH (test code = 785-6) 28.8 pg 25.9-32.8 MCHC (test code = 786-4) 33.1 g/dL 31.6-35.1 RDW-SD (test code = 57796-8) 40.9 fL 39-49.9 RDW-CV (test code = 788-0) 12.8 % 12-15.5 PLT (test code = 777-3) See_Comment [Automated [employer]aut[employer]a ge] The system which generated this result transmitted reference range: 166 - 358 10*3/?L. The reference range was not used to interpret this result as normal/abnormal. MPV (test code = 71460-5) 11.4 fL 9.5-12.9 NRBC/100 WBC (test code = 3566469932) See_Comment [Automated [employer] ssage] The system which generated this result transmitted reference range: 0.0 - 10.0 /100 WBCs. The reference range was not used to interpret this result as normal/abnormal. NRBC x10^3 (test code = 2879025173) <0.01 See_Comment [Automated Externaut[employer]a ge] The system which generated this result transmitted reference range: 10*3/?L. The reference range was not used to interpret this result as normal/abnormal. GRAN MAT (NEUT) % (test code = 770-8) 60.3 % IMM GRAN % (test code = 6268924472) 0.50 % LYMPH % (test code = 736-9) 28.6 % MONO % (test code = 5905-5) 6.3 % EOS % (test code = 713-8) 3.7 % BASO % (test code = 706-2) 0.6 % GRAN MAT x10^3(ANC) (test code = 0023504237) 6.58 10*3/uL 1.88-7.09 IMM GRAN x10^3 (test code = 3327172978) 0.06 10*3/uL 0-0.06 LYMPH x10^3 (test code = 731-0) 3.12 10*3/uL 1.32-3.29 MONO x10^3 (test code = 742-7) 0.69 10*3/uL 0.33-0.92 EOS x10^3 (test code = 711-2) 0.40 10*3/uL 0.03-0.39 H BASO x10^3 (test code = 704-7) 0.07 10*3/uL 0.01-0.07 Lab Interpretation (test code = 88747-0) [id number] 05:24:00* Test Item Value Reference Range Interpretation Comme nts POCT PREG (test code = 1605) negative On board controls acceptable with C Line (test code = 3574) positive POCT PREG LOT # (test code = 3575) [id number] POCT PREG TEST DATE ( test code = 3576) 06/08/2021 Lab Interpretation (test cod e = 68338-2) Normal [facility]"
--- NOTE | 2024-05-26 22:10 | RAD REPORT ---
EXAMINATION: ONE VIEW CHEST XR CLINICAL INDICATION: CHEST PAIN TECHNIQUE: Frontal chest projection is submitted. Examination is limited by patient positioning and t echnique. COMPARISON: 12/16/2017 FINDINGS: Interstitial markings are mildly prominent, without focal consolidation. The heart is upper limit of normal in size. No displaced fractures identified. IMPRESSION: No acute intrathoracic abnormalities.
[2024-05-26 22:14] LABS: Specific Gravity > 1.030 (1.005-1.030)
[2024-05-26 22:16] LABS: Specific Gravity > 1.030 (1.005-1.030); Sqamous Epithelial <5 /HPF (None Seen); Urine Bacteria <20 /HPF (<20); Urine Bilirubin NEGATIVE (Negative); Urine Blood 3+ (OVER) (Negative); Urine Clarity Extremely Turbid (Clear); Urine Color Light-Brown (Yellow); Urine Crystals Unidentified Moderate /HPF (None Seen); Urine Glucose 4+ (Over) (Negative); Urine Ketones NEGATIVE (Negative); Urine Micro Reflex YN NO BILL MICROSCOPIC; Urine Nitrite NEGATIVE (Negative); Urine Protein TRACE (Negative); Urine RBC >50 /HPF (None Seen); Urine Urobilinogen Normal (Normal); Urine WBC >50 /HPF (<5); Urine WBC Clump Rare /HPF (None Seen)
[2024-05-26 22:30] LABS: D-Dimer 0.364 FEUug/mL (0-0.500); PT Prothrombin Time 11.3 SECONDS (10-13.0); Protime INR 0.99
[2024-05-26 22:32] LABS: ALT/SGPT 27 U/L (13-56); Albumin 3.4 g/dL (3.4-5.0); Albumin/Globulin Ratio 0.8 (1.1-1.8); Alkaline Phosphatase 89 U/L (45-117); Anion Gap 9.7 mEq/L (5.0-15.0); BUN Blood Urea Nitrogen 11 mg/dL (7-18); Bicarbonate 28 mEq/L (21-32); Bilirubin Total 0.3 mg/dL (0.2-1.0); Globulin 4.2 g/dL (2.3-3.5); Glomerular Filtration Rate 103 ml/min (=/>90); Glucose Level 341 mg/dL (74-106); NT PRO-BNP 32 pg/mL (<125); Potassium 3.7 mEq/L (3.5-5.1); Protein, Total 7.6 g/dL (6.4-8.2); Sodium Level 137 mEq/L (136-145); Troponin High Sensitivity 5.9 pg/mL (<58.9)
[2024-05-26 22:33] LABS: AST/SGOT < 10 U/L (15-37); Bilirubin Direct < 0.2 mg/dL (0-0.2); Bilirubin Indirect, Calculated 0.1 mg/dL (0.2-0.8)
[2024-05-26] MEDS ORDERED: NA CHLORIDE 0.9% 500 ML ONE (23:47)
[2024-05-26] MEDS ORDERED: KETOROLAC 30 MG/ML INJ ONE (23:47)
--- NOTE | 2024-05-27 01:27 | RAD REPORT ---
EXAM: CT Angiography Chest With Intravenous Contrast CLINICAL HISTORY: The patient is 33 years old and is Female; Chest pain;SOB TECHNIQUE: Axial computed tomographic angiography images of the chest with intravenous contrast. Sagittal an d coronal reformatted images were created and reviewed. This CT exam was performed using one or more of the following dose reduction techniques: automated exposure control, adjustment of the mA a nd/or kV according to patient size, and/or use of iterative reconstruction technique. MIP reconstructed images were created and reviewed. COMPARISON: No relevant prior studies available. FINDINGS: PULMONARY ARTERIES: There are no obvious filling defects identified within the pulmonary arteries to suggest pulmonary embolism. AORTA: No acute findings. No thoracic aortic aneurysm. LUNGS: Unremarkable. No mass. No consolidation. PLEURAL SPACE: Unremarkable. No significant effusion. No pneumothorax. HEART: Unremarkable. No cardiomegaly. No significant pericardial effusion. No evidence of R V dysfunction. BONES/JOINTS: No acute fracture. No dislocation. SOFT TISSUES: Unremarkable. LYMPH NODES: Unremarkable. No enlarged lymph nodes. LIVER: The liver is enlarged and fatty. IMPRESSION: No evidence of pulmonary embolism. Electronically signed by: Verónica Krishnan MD 05/27/2024 01:02 AM CDT Due to temporary technical issues with the PACS/[employer] reporting system, reports are being howard d by the in-house radiologist without review as a courtesy to ensure prompt reporting the interpreting radiologist is fully responsible for the content of the report. Transcribed Date/Time: 05/27/2024 1:26 AM
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
[2024-05-27] MEDS ORDERED: CEFTRIAXONE 1000 MG/VIAL ONE (01:44)
[2024-05-27 02:27] VITALS: BP 131/86; TEMP 97.8; O2SAT 99
== END 2024-05-27 01:59 | disposition home or self-care (01) ==
LOC: ER 20:36
DX: R07.89 Other chest pain (principal); N39.0 Urinary tract infection, site not specified; I10 Essential (primary) hypertension; Z86.73 Personal history of transient ischemic attack (TIA), and cerebral infarction without residual deficits
CPT/HCPCS: 93005; 81001; 80048; 36415; 83735; 81025; 85610; 85379; 80076; 84484; 83880; 71275; 71045; Q9967; J7040; J0696; 96361; 96374; 96375; 99284